=== PATIENT | male | born 1975 | race Caucasian/White ===

== ENCOUNTER 2017-01-02 19:06 | Inpatient (IN) | payer OTHER ==
[~2017-01-02] VITALS: Ht 165.1 cm; Wt 106.6 kg
[~2017-01-02 19:06] MED LIST: ALBUTEROL0.09 MG/A1 INH; ALDACTAZIDE 251 EACH PO; AUGMENTIN 875 M1 TAB PO; COMBIVENT RESPIM4 GM INH; FUROSEMIDE20 M1 PO; HYDROCHLOROTHIA25 M1 PO; LASIX40 M1 PO; LISINOPRIL5 M1 PO; NORCO 5-325 TA1 EACH PO; PREDNISONE50 MG PO; PROAIR HFA8.5 GM INH; SYMBICORT 16010.2 GM INH; TORSEMIDE20 M1 PO
--- NOTE | 2017-01-02 19:46 | NUR ---
PER PT 6 MONTHS OF PERIPHERAL EDEMA CALLED BY PMD TODAY BECAUSE WHITE COUNT IS HIGH BILAT LEGS WEEPY AND PAINFUL.
--- NOTE | 2017-01-02 20:07 | NUR ---
BLOOD DRAWN AND SENT TO LAB. GREEN,SST,BLUE,LAV.
[2017-01-02 20:13] LABS: ABSOLUTE BASOPHIL COUNT 0 /CUMM (0.0-0.2); ABSOLUTE EOSINOPHIL COUNT 0.3 /CUMM (0.0-0.7); ABSOLUTE GRANULOCYTE CT 7.4 /CUMM (1.4-6.5); ABSOLUTE MONOCYTE COUNT 1.7 /CUMM (0.10-0.60); BASOPHIL % 0.3 % (0.0-2.0); EOSINOPHIL % 2.4 % (0-5); GRANULOCYTE % 64.5 % (42.2-75.2); HEMATOCRIT 39.3 % (42-52); MEAN CORPUSCULAR HGB 27.7 PG (27.0-31.0); MEAN CORPUSCULAR HGB CONC 33.6 G/DL (33.0-37.0); MEAN CORPUSCULAR VOLUME 82.4 FL (80.0-94.0); MEAN PLATELET VOLUME 6.9 FL (7.4-10.4); PLATELET COUNT 408 /CUMM (130-400); RBC DISTRIBUTION WIDTH 13.7 % (11.5-14.5); RED BLOOD CELL CT 4.77 /CUMM (4.70-6.10); WHITE BLOOD CELL COUNT 11.4 /CUMM (4.8-10.8)
--- NOTE | 2017-01-02 20:44 | ED UPPER/LOWER EXTREMITY COMPL ---
History of Present Illness General Chief Complaint: General Adult Stated Complaint: PT WAS SIB DR FOR SWELLING OF LEGS Source: patient, family Exam Limitations: no limitations Vital Signs & Intake/Output Vital Signs & Intake/Output Vital Signs Date Time Temp Pulse Resp B/P B/P Pulse O2 O2 Flow FiO2 Mean Ox Delivery Rate 01/03 0000 98.0 106 16 124/66 97 Room Air 01/02 1947 98.7 100 28 116/75 96 ED Intake and Output 01/03 0000 01/02 1200 Intake Total 50 Output Total Balance 50 Intake, IV 50 Patient 262 lb Weight Allergies Coded Allergies: mold (Mild, NASAL CONGESTION 08/01/16) Reconcile Medications Albuterol Sulfate (Proair Hfa) 90 MCG HFA.AER.AD 2 PUF INH Q4-6 PRN PRN BREATHING (Reported) Aldactazide (Aldactazide 25-25 Tablet) 25 MG-25 MG TABLET 1 TAB PO DAILY IDIOPATHIC EDEMA Budesonide/Formoterol Fumarate (Symbicort 160-4.5 Mcg Inhaler) 160 MCG-4.5 MCG/ ACTUATION HFA.AER.AD 2 PUF INH BID BREATHING (Reported) Ipratropium/Albuterol Sulfate (Combivent Respimat Inhal [place]) 20 MCG-100 MCG/ ACTUATION MIST.INHAL 1-2 PUFF INH Q4 HRS NEEDED PRN BREATHING (Reported) Lisinopril 5 MG TABLET 1 TAB PO DAILY BP (Reported) Triage Note: PER PT 6 MONTHS OF PERIPHERAL EDEMA CALLED BY PMD TODAY BECAUSE WHITE COUNT IS HIGH BILAT LEGS WEEPY AND PAINFUL. Triage Nurses Notes Reviewed? yes Onset: Gradual Duration: week(s): (2) Timing: recent history Severity: moderate, severe Pain/Injury Location: Bilateral: Leg. No Modifying Factors: none Associated Symptoms: swelling HPI: This is a 41-year-old male with history of asthma who quit smoking 8 months ago who presents to the ER with chief complaint of a gradual worsening edema over the past 7 months. He states he was being controlled with Lasix and a sodium free diet. However the last 2 weeks the edema has gotten much worse, both legs are red, swollen and painful. He states he was sent for outpatient blood work by Danelle Barker DO's office today. They called him this evening with an elevated white blood cell count and told him to come to the hospital for treatment for cellulitis. Patient denies any chest pain. He does have shortness of breath when lying flat. He states he had an echocardiogram and evaluation by cardiology and that nothing is wrong with his heart. Past History Travel History Traveled to [place] past 21 day No Medical History Any Pertinent Medical History? see below for history Neurological: NONE EENT: NONE Cardiovascular: NONE Respiratory: asthma Gastrointestinal: NONE Hepatic: NONE Renal: NONE Musculoskeletal: NONE Psychiatric: NONE Endocrine: NONE Blood Disorders: NONE Cancer(s): NONE DETECTIVE/Reproductive: NONE History of MRSA: No History of VRE: No History of CDIFF: No Surgical History Surgical History: hernia repair-inguinal Psychosocial History Who do you live with Family Services at Home None What is your primary language Surinamese Tobacco Use: Never used Family History Hx Contributory? No Review of Systems Review of Systems Constitutional: Denies: chills, fever. EENTM: Reports: no symptoms. Respiratory: Reports: short of breath. Denies: cough, sputum production. Cardiovascular: Reports: peripheral edema. Denies: chest pain, palpitations, syncope. Gastrointestinal/Abdominal: Denies: abdominal pain. Genitourinary: Reports: no symptoms. Musculoskeletal: Reports: no symptoms. Skin: Reports: see HPI, erythema. Neurological/Psychological: Reports: no symptoms. Hematologic/Endocrine: Denies: bruising, bleeding, polyuria, polydipsia. Immunological: Denies: splenectomy. All Other Systems: Reviewed and Negative Physical Exam Physical Exam General Appearance: well developed/nourished, alert, awake, mild distress, obese Head: atraumatic Eyes: Bilateral: PERRL, EOMI. Ears, Nose, Throat: normal pharynx, normal ENT inspection, hearing grossly normal Neck: normal inspection, supple Cardiovascular/Respiratory: regular rate/rhythm Peripheral Pulses: 2+ radial (R), 2+ radial (L), 2+ dorsalis pedis (R), 2+ dorsalis pedis (L) Gastrointestinal: SOFT, OBESE TENSE LOWER ABDOMEN Back: normal inspection Leg Left: swelling, tenderness, ERYTHEMA Leg Right: swelling, tenderness, ERYTHEMA Hip Left: normal range of motion, normal inspection Hip Right: normal range of motion, normal inspection, mass, nodules, swelling, tenderness, abrasions/lacerations, assymetry, bone tenderness, deformity, ecchymosis, evidence of injury, joint effusion, pain, soft tissue tenderness, limited range of motion Knee Left: normal range of motion, normal inspection Knee Right: normal range of motion, normal inspection Foot Left: erythema, soft tissue tenderness, swelling Neurologic/Tendon: normal sensation, normal motor functions, normal tendon functions Skin: intact, normal color, warm/dry Lymphatic: no anterior cervical pascual Diagram Legs Front/Back 1) TENDER, SWOLLEN, ERYTHEMA 2) TENDER, SWELLING, ERYTHEMA Progress Differential Diagnosis: cellulitis, CHF, DVT, DEPENDENT EDEMA Plan of Care: Orders Procedure Date/time Status Heart Healthy Diet 01/03 B Active Pathway - chart 01/03 0038 Active Patient Data 01/03 2356 Active Patient Data 01/02 2245 Active Admit to inpatient 01/02 2139 Active Vital Signs 01/02 2139 Active Code Status 01/02 2139 Active Intake & Output 01/02 2133 Active Add-on Test (ER Only) 01/02 2111 Active BLOOD CULTURE 01/02 2111 Active EKG 01/02 2111 Active B-TYPE NATRIURETIC PEP (BNP) 01/02 1955 Complete TROPONIN LEVEL 01/03 1948 Complete COMPREHENSIVE METABOLIC PANEL 01/03 1948 Complete CBC WITHOUT DIFFERENTIAL 01/03 1948 Complete Current Medications Sig/Carey Start time Last Medication Dose Stop Time Status Admin Potassium Chloride 20 MEQ DAILY 01/03 1000 AC (K-Dur) Furosemide 40 MG 7:30 AM, & 4:30 PM 01/03 0730 AC (Lasix) Acetaminophen 650 MG Q6P PRN 01/03 0045 AC (Tylenol) Acetaminophen 1,000 MG Q6P PRN 01/03 0045 AC (Ofirmev) Oxycodone/ 1 TAB Q6P PRN 01/03 0045 AC Acetaminophen (Percocet) Budesonide/ 2 PUF BID 01/02 2357 AC 01/03 Formoterol Fumarate 0002 (Symbicort) Albuterol Sulfate 2 PUF Q4-6 PRN PRN 01/02 2345 AC (Ventolin) Laboratory Tests 01/02/171954: Anion Gap 12, Estimated GFR 56 L, BUN/Creatinine Ratio 10.7, Glucose 95, Calcium 9.2, Total Bilirubin 0.5, AST 32, ALT 37, Alkaline Phosphatase 100, Troponin I < 0.01, Cyx-V-Hoboglicwpl Pept 37.7, Total Protein 7.1, Albumin 3.8, Globulin 3.3, Albumin/Globulin Ratio 1.2, CBC w Diff NO MAN DIFF REQ, RBC 4.77, MCV 82.4, MCH 27.7, RDW 13.7, MPV 6.9 L, Gran % 64.5, Lymphocytes % 17.5 L, Monocytes % 15.3 H, Eosinophils % 2.4, Basophils % 0.3, Absolute Granulocytes 7.4 H, Absolute Lymphocytes 2.0, Absolute Monocytes 1.7 H, Absolute Eosinophils 0.3, Absolute Basophils 0, PUBS MCHC 33.6 Microbiology 01/02 2135 BLOOD: Blood Culture - RECD 01/03 2120 BLOOD: Blood Culture - RECD Diagnostic Imaging: Viewed by Me: Radiology Read. Discussed w/RAD: Radiology Read. Initial ED EKG: SINUS TACHYCARDIA, PROLONGED QT Departure Departure Disposition: STILL A PATIENT Condition: Stable Clinical Impression Primary Impression: Dependent edema Secondary Impressions: Cellulitis Referrals: DANELLE BARKER DO (PCP/Family) Departure Forms: Customer Survey General Discharge Information Admission Note Sp[facility]: [facility] Documentation of Exam: Documentation of any treatments & extenuating circumstances including Concerns Regarding Discharge (functional status, medication knowledge or non-compliance, living conditions, etc.) that warrant an admission rather than observation: [IV ABX, IV DIURESIS, F/U CULTURES, MONITOR I/O, MONITOR ELECTROLYTES]
--- NOTE | 2017-01-02 20:44 | NUR ---
PT TO ROOM 10 VIA W/C. AT BEDSIDE FOR PT EVAL
--- NOTE | 2017-01-02 21:27 | NUR ---
IV EST #20 IN RAC, CULTURES X2 OBTAINED
--- NOTE | 2017-01-02 21:33 | NUR ---
PT MEDICATED WITH 1G CEFAZOLIN AND 40MG LASIX
--- NOTE | 2017-01-02 21:35 | NUR ---
EKG IN PROGRESS BY CALLI KNOWLES
--- NOTE | 2017-01-02 21:41 | RADIOLOGY REPORT ---
EXAMINATION: XR PORTABLE CHEST CLINICAL INFORMATION: Shortness of breath. Worsening dependent edema. COMPARISON: Chest x-ray 08/03/2016 TECHNIQUE: Portable frontal view of the chest was obtained. 9:11 PM FINDINGS: No significant abnormality is noted involving the heart, lungs, mediastinum, bony thorax or soft tissues. IMPRESSION: No acute abnormality.
--- NOTE | 2017-01-02 23:22 | NUR ---
ASSUMED CARE OF PT PER JAIDA OWENS. PT RESTING IN RM WITH FAMILY AT BEDSIDE, WILL CONTINUE TO MONITOR.
--- NOTE | 2017-01-03 00:21 | NUR ---
PT MEDICATED WITH 40MG IV LASIX, CONFIRMED WITH RESIDENT REID, AND 40MEQ PO K-DUR PER EMAR. PHARMACY CALLED FOR SYMBICORT.
--- NOTE | 2017-01-03 00:48 | History & Physical ---
MIRIAM RAY 01/03/17 0047: General Information and HPI MD Statement: I have seen and personally examined LIS MCKENZIE and documented this H&P. The patient is a 41 year old M who presented with a patient stated chief complaint of worsening bilateral lower extremity edema. Source of Information: patient, old records Exam Limitations: no limitations History of Present Illness: This is a 40-year-old male with past medical history significant for morbid obesity, asthma on albuterol, Symbicort, ipratropium, obstructive sleep apnea not using CPAP, significant tobacco use quitted 8 months ago, positive Lyme titer in March, tonsillectomy, laparoscopic repair of left inguinal hernia, bilateral lower extremities edema, hypertension not on antihypertensives presented to the [facility] emergency department with the chief complaint of worsening bilateral lower extremity swelling for 3 weeks. Patient cald his PCP Dr. Chase DO for worsening lower extremity swelling and he was advised to get blood work done. Went to her primary care doctor who prescribed prednisone. He was advised by his primary care doctor to go to the emergency room for elevated WBC count, worsening swelling concerning for cellulitis. Patient reports bilateral lower extremity swelling which has been worsening for the past 3 weeks. He noticed weight gain almost 30 pounds in 3 weeks. Denied any dietary changes. He is on salt restricted diet. He denies missing of Lasix doses. Reports difficulty breathing, dyspnea on exertion, orthopnea. Denies any paroxysmal nocturnal dyspnea. Denies any chest pain, racing of heart. Also reported bilateral lower extremity redness, pain associated with swelling. Denies any trauma to the legs. Weeping Wound on left lower extremity with clear discharge. Of note patient has history of asthma. However denies any fever, chills, wheezing, cough. Compliant with asthma medications. Denies any chest pain, racing of heart, nausea, vomiting, abdominal pain, change in bladder or bowel habits. He denies smoking, alcohol abuse, illicit drug intake. Denies any sick contacts and recent travel history. He feels he is pretty good with mobilization. He was admitted at [facility] in July 2016 for anasarca. Patient has no history of cardiac disease and echocardiogram in April of 2016 showed normal EF >65% and normal diastolic dysfunction. 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 Due to histroy of SHAE and reported intolerance to CPAP, pulmonology consult was placed during last admission with Dr. Geovanna Schuler. She suggested after discharge that patient needs follow up for PFTs and CPAP desensitization. However patient didn't follow-up therapeutic recreation assistant after discharge. He has appointment with bariatric surgeon on coming Saturday day 01/04/2017 regarding obesity management. Allergies/Medications Allergies: Coded Allergies: mold (Mild, NASAL CONGESTION 08/01/16) Home Med list Albuterol Sulfate (Proair Hfa) 90 MCG HFA.AER.AD 2 PUF INH Q4-6 PRN PRN BREATHING (Reported) Aldactazide (Aldactazide 25-25 Tablet) 25 MG-25 MG TABLET 1 TAB PO DAILY IDIOPATHIC EDEMA Budesonide/Formoterol Fumarate (Symbicort 160-4.5 Mcg Inhaler) 160 MCG-4.5 MCG/ ACTUATION HFA.AER.AD 2 PUF INH BID BREATHING (Reported) Ipratropium/Albuterol Sulfate (Combivent Respimat Inhal Reasnor) 20 MCG-100 MCG/ ACTUATION MIST.INHAL 1-2 PUFF INH Q4 HRS NEEDED PRN BREATHING (Reported) Lisinopril 5 MG TABLET 1 TAB PO DAILY BP (Reported) Compliance With Home Meds: GOOD Past History Travel History Traveled to [place] past 21 day No Medical History Neurological: NONE EENT: NONE Cardiovascular: NONE Respiratory: asthma Gastrointestinal: NONE Hepatic: NONE Renal: NONE Musculoskeletal: NONE Psychiatric: NONE Endocrine: NONE Blood Disorders: NONE Cancer(s): NONE 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 EENTM: Denies: see HPI. Cardiovascular: Reports: edema, orthopena, peripheral edema. Denies: chest pain, palpitations, syncope. Respiratory: Reports: orthopnea, short of breath, wheezing. Denies: cough, hemoptysis, sputum production, stridor. GI: Reports: distention. Denies: abdominal pain, constipation, diarrhea, melena, nausea, vomiting. Genitourinary: Denies: discharge, dysuria, frequency, nocturia, urgency. Musculoskeletal: Denies: back pain, joint pain. Skin: Reports: erythema. Denies: see HPI. Neurological/Psychological: Denies: anxiety, ataxia, depressed, dementia, headache, numbness, tingling, tremors. Exam & Diagnostic Data Last 24 Hrs of Vital Signs/I&O Vital Signs Date Time Temp Pulse Resp B/P B/P Pulse O2 O2 Flow FiO2 Mean Ox Delivery Rate 01/03 0000 98.0 106 16 124/66 97 Room Air 01/02 1947 98.7 100 28 116/75 96 Intake & Output 01/03 0800 01/03 0000 01/02 1600 Intake Total 50 Output Total 1200 Balance -1200 50 Intake, IV 50 Output, Urine 1200 Patient 118.841 kg Weight Physical Exam General Appearance Alert, Oriented X3, Cooperative, No Acute Distress Skin No Rashes, No Breakdown HEENT Atraumatic, PERRLA, EOMI, Mucous Membr. moist/pink Neck Supple, No JVD Lymphatic Axillary nl, Cervical nl Cardiovascular Regular Rate, Normal S1, Normal S2, No Murmurs Lungs Clear to Auscultation, Normal Air Movement Abdomen Normal Bowel Sounds, Soft, No Tenderness Neurological Strength at 5/5 X4 Ext, Cranial Nerves 3-12 NL Extremities No Clubbing, No Cyanosis, +3 pitting edema Vascular Normal Pulses, Pulses Symmetrical Last 24 Hrs of Labs/Marquez: Laboratory Tests 01/02/171954: Anion Gap 12, Estimated GFR 56 L, BUN/Creatinine Ratio 10.7, Glucose 95, Calcium 9.2, Total Bilirubin 0.5, AST 32, ALT 37, Alkaline Phosphatase 100, Troponin I < 0.01, Sfr-Y-Fqhzuhxeyjh Pept 37.7, Total Protein 7.1, Albumin 3.8, Globulin 3.3, Albumin/Globulin Ratio 1.2, CBC w Diff NO MAN DIFF REQ, RBC 4.77, MCV 82.4, MCH 27.7, RDW 13.7, MPV 6.9 L, Gran % 64.5, Lymphocytes % 17.5 L, Monocytes % 15.3 H, Eosinophils % 2.4, Basophils % 0.3, Absolute Granulocytes 7.4 H, Absolute Lymphocytes 2.0, Absolute Monocytes 1.7 H, Absolute Eosinophils 0.3, Absolute Basophils 0, PUBS MCHC 33.6 Microbiology 01/02 2135 BLOOD: Blood Culture - RECD 01/03 2120 BLOOD: Blood Culture - RECD Assessment/Plan Assessment: This is a 40-year-old male with past medical history significant for morbid obesity, asthma on albuterol, Symbicort, ipratropium, obstructive sleep apnea not using CPAP, significant tobacco use quitted 8 months ago, positive Lyme titer in March, tonsillectomy, laparoscopic repair of left inguinal hernia, bilateral lower extremities edema, hypertension not on antihypertensives presented to the [facility] emergency department with the chief complaint of worsening bilateral lower extremity swelling for 3 weeks. Vitals on admission-afebrile, heart rate 100, respiratory rate 28, blood pressure 116/75, saturating at 96% on room air. Pertinent labs on admission-leukocytosis 11.4, hemoglobin 13.2, creatinine 1.4. Chest x-ray was clear. EKG showed sinus tachycardia, rate 103, QTC 492, no acute ST-T wave changes. He received 1 dose of 40 mg IV Lasix and cefazolin in emergency room. Problem list 1. leg edema 2. Asthma 3. SHAE 4. Lung nodules 5. Leukocytosis 6. Acute kidney injury leg edema Patient presented with worsening bilateral lower extremity edema for 3 weeks. Of note patient was diagnosed with dependent edema 6 months ago and was on Lasix 20 mg twice a day since then, also on sodium restricted diet. He is usually compliant With his Lasix. However he reported increase in weight gain 30 pounds for 3 weeks. Chest x-ray shows no evidence of pulmonary edema. * The patient reported bilateral lower extremities redness, pain associated with the swelling. Less likely cellulitis. Will rule out deep vein thrombosis. * Etiology for dependent edema remains unclear at this point. No evidence of heart failure, pulmonary hypertension, liver failure, nephrotic syndrome, hypothyroidism. Most possibly from venous insufficiency. * April 2016 echocardiogram showed normal ejection fraction greater than 65% with normal diastolic function. * Admitted to general med floor for further management. * Monitor vitals closely * Maintain oxygen saturation above 90% * Received IV Lasix 40 mg * We will keep him on Lasix 40 mg oral twice a day * Oral potassium pills * Strict ins and outs * Daily weights * Sodium restricted diet * Cardiology consult- dr bauer * Follow up cardiology recommendations * Follow-up ultrasound Doppler lower extremity 2. SHAE histroy of SHAE and reported intolerance to CPAP, pulmonology consult was placed during last admission with Dr. Geovanna Schuler. She suggested after discharge that patient needs follow up for PFTs and CPAP desensitization. However patient didn't follow-up therapeutic recreation assistant after discharge 3. Asthma * Continue home medications, symbicort, albuterol, atrovent * No evidence of asthma exacerbation * Provide supplemental O2 as needed to keep O2 saturtion >92%, * currently on RA * Outpatient testing for PFT, CPAP desensitization after discharge 4. Leukocytosis * WBC count elevated to 11.4 on admission * No bandemia * No fever * Urine was clear, chest x-ray was clear * No source of infection was found * Most likely from steroids as he was on steroids for 1 week prior to coming to the hospital * Will recheck WBC count in the morning. * No antibiotics for now. 5. Acute kidney injury * Creatinine 1.4 on admission * Most likely from Lasix * We'll continue to monitor creatinine 6. History of lung nodules (08/01/2016) Lung nodules with right costophrenic angle pleural thickening: Scattered pulmonary nodules noted on chest imaging, most of which were related to the fissures or pleural reflections. CT also showed increasing prominence of the nodular pleural thickening at the right cardiophrenic angle. * Needs outpatient follow-up with primary care doctor and therapeutic recreation assistant. Patient is full code DVT prophylaxis-subcutaneous heparin Heart healthy diet As Ranked By This Provider Problem List: 1. Asthma 2. Dependent edema 3. SHAE (obstructive sleep apnea) 4. Pulmonary nodules Core Measures/Miscellaneous Acute Coronary Syndrome ACS Diagnosis: No Cerebrovascular Accident CVA/TIA Diagnosis: No Congestive Heart Failure CHF Diagnosis: No Venous Thromboembolism VTE Risk Factors: Age > 40, Obesity No [facility] VTE prophylaxis d/t: No contraindications No VTE Pharm Prophylaxis d/t: No contraindications VTE Diagnosis: No VTE Type: NONE VTE Confirmed by (Test): NONE Severe Sepsis Severe Sepsis Present: No Septic Shock Septic Shock Present: No Miscellaneous Documentation Attending Case Discussed With: RIA KEARNEY MDVandana Primary Care Physician: ANGELA BARKER DO 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 Level of Patient Care: General Medicine HERNÁN KEARNEY MD 01/03/17 0520: Attending Review Statement Attending Statement Attending Statement: examined this patient, discuss w/resident/PA/PERFORMANCE SOLUTIONS SPECIALIST, agreed w/resident/PA/PERFORMANCE SOLUTIONS SPECIALIST Attending Assessment/Plan: 41 yo morbidly obese M with h/o asthma, SHAE with CPAP intolerance, lung nodules, ex-smoker quit 8 months ago, was admitted to [facility] (Jul 2016) for anasarca/ edema and found to have no clear etiology, discharged on diuretics ( spironolactone/HCTZ); subsequently readmitted to [facility], [facility] (Aug 2016) for similar symptoms and they did nothing different, he reports. He has been on lasix 20 mg BID and over past 3 weeks, he has noticed increasing LE edema extending upto his abdomen, weight gain of about 30-40 lbs and dyspnea/ orthopnea. 2 weeks ago, PCP placed him on prednisone for ?LE edema/erythema. PCP sent him in for blood work today which showed leukocytosis. She then asked him to come to ER for concerns of cellulitis. Please note, patient did not follow up with Dr. Bauer or Dr. Schuler as was advised upon discharge. He does not use his CPAP machine as he feels it bloats his abdomen and causes discomfort. He is unable to do high doses of lasix as it causes severe myalgias/ cramps. VSS. Chest b/l reduced air entry 2/2 body habitus, Heart S1S2 regular, Abd soft, distended, diffuse tenderness on deep palpation. Extremities: bilateral 3+ pitting edema extending upto lower abdomen, diffuse erythema, mild warmth. Peripheral pulses are dopplerable. Labs: WBC 11.4, Plt 408, creat 1.4 (baseline 1.0), trop neg. CXR: neg. EKG: Sinus tachycardia. Echo (2016): EF 65%. He received IV lasix 80 mg and diuresed about 1.2 Liter. 1. Idiopathic edema worse in the setting of recent steroid use, with no evidence of CHF. Previous work up was negative for nephrotic syndrome or cirrhosis. GM admit, elevate LE, IV lasix 40 BID, monitor electrolytes. No need for repeat Echo. Cardio consult (Dr. Bauer). Hold off prednisone. Please speak with PCP in AM and find out why patient was placed on prednisone. Consider compression stockings. I do not think he has bilateral cellulitis. Erythematous changes are secondary to dependent edema. Will obtain LE dopplers to rule out DVT. Monitor off antibiotics. 2. Orthopnea/ dyspnea on exertion likely multifactorial sleep apnea, profound anasarca and possible underlying obesity hypoventilation syndrome. He is not in asthma exacerbation. Continue TRC nebs and symbicort. I discussed use of CPAP machine and patient is very reluctant to use it. He needs outpatient follow up with Pulm for PFT, CPAP desensitization, and PET scan. 3. Hypertension. He has been taken off lisinopril. BP stable. 4. Elevated creatinine 2/2 diuretic use. Leukocytosis is likely steroid induced/ reactive. DVT ppx Hep SC. Full code. Patient is scheduled to see a Bariatric surgeon on Thursday 01/04 @ 2.15 pm for evaluation for surgery. MICHEAL REID 01/03/17 0533: Resident Review Statement Resident Statement: examined this patient, discussed with psychology intern, agreed with psychology intern Other Findings: Mr. Mckenzie is a 41 year old gentleman with significant past medical history of asthma [non-O2 dependent], recently diagnosed SHAE [noncompliant w CPAP], and recent progressive LE edema, presents to the hospital emergency department with complaints of progressive lower extremity edema associated with dyspnea and orthopnea for the last 3 weeks. He states he's been compliant with his Lasix and diet. He follows up with Dr. OCHOA an outpatient setting, as well as Dr. Bauer, who determined his lower extremity swelling was not cardiac in origin. He is quite frustrated as currently the etiology of his lower extremity edema is unknown. In addition to his swelling, he has also developed significant erythema bilaterally to the lower abdomen. Additionally he has significant pain in his lower extremities bilaterally. He states that he recently completed a course of steroids, which he feels was for lower extremity swelling however he is not certain. Vitals on admission were temperature 98.7, pulse rate 100, respiratory rate 28, blood pressure 116/75, saturating 96% on room air. physical exam was positive for an age-appropriate appearing male on comfortably in bed in no acute distress. HEENT exam benign. No jugular venous distention. Heart exam S1-S2 positive without murmur rubs or gallops. Lungs clear to auscultation bilaterally without any rales or rhonchi. Abdomen distended, nontender, bowel sounds appreciated. Well-demarcated area of erythema from his toes to his inferior umbilicus. Lower extremity exam significant for significant edema however it is trace pitting, with significant bilateral symmetrical erythema that is blanching. No warmth noted. However, both legs are severely tender to palpation. Labs significant for white blood cell count 11.4, H&H 13.2/39.3, platelets 408. Basic electrolyte panel significant for BUNs/creatinine 15/1.4. Remainder of the lab work is unremarkable, including BNP 37.7 and troponin less than 0.01. Chest x-ray was negative for any acute pathology. Problem list/assessment plan Bilateral lower extremity edema * Admit to for IV diuresis. * Undetermined etiology, Additionally he doesn't have abdominal ascites or jugular venous distention and cardiac origin has been ruled out. * His tendereness and erythema may indicate vasculitis, we will add on ESR and C -reactive protein as if they are elevated this may point nebs towards vasculitis , however with vasculitis, his edema shouldn't really respond to IV diuresis. * Additionally, we will obtain bilateral lower extremity Dopplers to evaluate for DVT as he does have a family history of blood clots in his brother. * IV diuresis with Lasix 40 mg twice a day, we will also give 1 extra dose of IV Lasix. Additionally we will give potassium supplementation as last time he states he was diuresed, he developed significant cramping. * Please consult again with Dr. Bauer in the morning * We will also recheck his BUN/creatinine in the morning as he did have a slight bump in his creatinine 1.4. Dyspnea/orthopnea * Given his ENP and chest x-ray findings, this is mostly likely secondary to a long history of smoking and newly diagnosed obstructive sleep apnea. * We will continue inhalers and TRC/nebs, as well as CPAP [however patient refused CPAP multiple times.] * He did not get a chest to follow-up with pulmonology an outpatient setting for an evaluation as well as pulmonary function tests. Leukocytosis * Given his lack of fever, symptoms, and chest x-ray finding, his mildly elevated white blood cell count was most likely secondary to steroid-induced leukocytosis, and if a CBC was measured a few days ago, I'm sure the white blood cell count has improved today. Full code Heart healthy diet IV heparin for DVT ppx Mild pain path
--- NOTE | 2017-01-03 01:13 | NUR ---
PT AMBULATING AROUND THE ROOM AND USING URINAL NEEDED. THIS RN WILL CONTINUE TO MONITOR
--- NOTE | 2017-01-03 01:27 | NUR ---
THIS RN TURNED OFF LIGHTS FOR COMFORT FOR PT, PT SNORING, WILL CONTINUE TO MONITOR
--- NOTE | 2017-01-03 02:46 | NUR ---
PT AMBULATING AROUND THE ROOM ASKING TO PUT HIS PANTS ON. THIS RN STATED THAT IT IS PREFERED TO KEEP PANTS OFF AND THE GOWN ON FOR THE PURPOSE OF THE BILATERAL LOWER EDEMA
--- NOTE | 2017-01-03 03:47 | NUR ---
PT SLEEPING, BILATERAL CHEST RISE AND FALL NOTED, PT CONTINUES TO SNORE. WILL CONTINUE TO MONITOR
--- NOTE | 2017-01-03 04:44 | Admission Certification ---
Admission Certification Certification Statement - As attending physician, I certify that at the time of - admission, based on clinical presentation, severity of - symptoms, need for further diagnostic testing and - therapeutic interventions, and risk of adverse outcomes - without in-hospital treatment, in my clinical assessment, - this patient requires an acute hospital stay for a minimum - of two nights or longer. I have also considered psychsocial - factors such as support system, advanced age, financial - issues, cognitive issues, and failed out-patient treatments, - past re-admission history, safety of patient, and lack of - compliance as applicable. Specific rationale supporting this admission is: Bilateral lower extremity edema, generalized ansarca of unclear etiology.
--- NOTE | 2017-01-03 04:53 | NUR ---
PT SLEEPING WITH RR, WILL CONTINUE TO MONITOR
--- NOTE | 2017-01-03 05:55 | NUR ---
PT INFORMED THAT BREAKFAST WILL BE HERE SOON
--- NOTE | 2017-01-03 06:16 | NUR ---
PT REFUSED 0600 HEPARIN BOLUS SC, PT STATES " I WALK AROUND A LOT I DONT NEED THAT", RESIDENT FRANKLIN CALLED AND INFORMED.
--- NOTE | 2017-01-03 09:45 | ULTRASOUND REPORT ---
EXAMINATION: US TRIPLEX OF LOWER EXTREMITIES, BILATERAL CLINICAL INFORMATION: Bilateral lower extremity pain, swelling and erythema. COMPARISON: Ultrasound bilateral lower extremities dated 07/19/2016. TECHNIQUE: Color-flow triplex imaging with spectral analysis and compression Doppler were performed on the lower extremities. FINDINGS: Respiratory variation, normal compression and augmented flow are noted throughout the lower extremities. The visualized common femoral vein, proximal greater saphenous vein, superficial femoral vein, profunda femoral vein, popliteal vein and mid calf peroneal and posterior tibial venous segments show no evidence of deep venous thrombosis. There is no Garcia's cyst. In the right inguinal region, a 3.5 x 1.6 x 2.7 cm reniform lymph node is seen. In the left inguinal region, a 3.6 x 1.5 x 2.6 cm reniform lymph node is seen. IMPRESSION: 1. No ultrasound evidence of deep venous thrombosis involving the bilateral lower extremities. 2. Nonspecific pathologically enlarged bilateral internal lymph nodes could be secondary to infectious, inflammatory or neoplastic etiologies. These should be managed on a clinical basis. At a minimum, consider short-term follow-up ultrasound imaging to ensure stability/regression.
--- NOTE | 2017-01-03 14:21 | NUR ---
BED ASSIGNMENT [id number]
--- NOTE | 2017-01-03 14:45 | NUR ---
NURSING NOTE REPORT GIVEN TO JAIDA OCASIO.
--- NOTE | 2017-01-03 15:36 | PN- Att Addend ---
Attending Addendum Attending Brief Note Patient seen and examined. In addition the advertising internship also spoke to Dr. Stone's PA and both the advertising internship and myself spoke to Dr. Bauer. This is a 41-year-old gentleman with morbid obesity and history of asthma who has anasarca and edema of unclear etiology. He had an extensive stay in July 2016 when he was worked up from a cardiac, renal and hepatic standpoint and no obvious etiology was found for his edema. He's been maintained previously on spirinolactone and hydrochlorothiazide and most recently on Lasix on the outside. He came in here because of the worry of cellulitis and a high white count. Clinically he doesn' t appear to have a cellulitis and we are watching him off antibiotics. He got IV Lasix to decrease the amount of edema and we are going to switch it to by mouth Lasix now. We confirm this with Dr. Bauer as his renal function is worsening. We clarified that the prednisone use was for an asthma exacerbation and because his edema and legs looks so much better on the prednisone the PCP was considering the possibility of an autoimmune blistering disease giving him the edema and swelling and gave him another course of prednisone. At this point will safely watch him off the prednisone, switch his Lasix to by mouth and follow his renal function and white count closely. If it stabilized believe he can be discharged in a.m. with ongoing outpatient follow-up to workup the cause of this edema.
[2017-01-03 15:44] VITALS: BP 120/80
--- NOTE | 2017-01-03 15:50 | Patient Discharge Instructions ---
Discharge Instructions General Discharge Information Special Instructions: Follow up with Dr. Bauer and Dr. Schuler after discharge. Contact Call Dermatology to schedule an appointment for further evaluation of your lower extremity swelling. please follow up with vascular surgery as outpatient Acute Coronary Syndrome Inclusion Criteria At DC or during hospital stay patient has or had the following: ACS DIAGNOSIS No Discharge Core Measures Meds if any: Prescribed or Continued at Discharge Meds if any: NOT Prescribed or Continued at Discharge Congestive Heart Failure Inclusion Criteria At DC or during hospital stay patient has or had the following: CHF DIAGNOSIS No Discharge Core Measures Meds if any: Prescribed or Continued at Discharge Meds if any: NOT Prescribed or Continued at Discharge Cerebrovascular accident Inclusion Criteria At DC or during hospital stay patient has or had the following: CVA/TIA Diagnosis No Discharge Core Measures Meds if any: Prescribed or Continued at Discharge Meds if any: NOT Prescribed or Continued at Discharge Venous thromboembolism Inclusion Criteria VTE Diagnosis No VTE Type NONE VTE Confirmed by (Test) NONE Discharge Core Measures - Per Current guidelines, there needs to be overlap - treatment for the first 5 days of Warfarin therapy. - If discharged on Warfarin prior to 5 days of - overlap therapy, the patient will need to be - assessed for post discharge needs including - *Post discharge parental anticoagulation - *Warfarin and/or parental anticoagulation education - *Follow up date to check INR post discharge At least 5 days overlap therapy as Inpatient No Meds if any: Prescribed or Continued at Discharge Note: Overlap Therapy is Warfarin and Anticoagulant Meds if any: NOT Prescribed or Continued at Discharge
--- NOTE | 2017-01-03 16:00 | NUR ---
pt arrived to floor at aprx 1500. A&O X 3. C/O PAIN 3/10 TO BRIANNE KNEES, REFUSES INTERVENTION. BLE AND LOWER ABD +2 EDEMA AND REDDNES NOTED. +PULSES WITH DOPPLER, X'S MARKED BRIANNE PEDAL FOR EASE OF FINDING. BED LOW, LOCKED, CALL MONTES WITHIN REACH. MONITOR, MAINTAIN SAFETY PRECATIONS.
--- NOTE | 2017-01-03 17:49 | Cons- Cardiology ---
General Information and HPI Consulting Request Date of Consult: 01/03/17 Requested By: KALEE ELDRIDGE,GHAZAL Lacy History of Present Illness: The patient is a 41 year old male with history of asthma, hypertension and tobacco abuse. He also has obstructive sleep apnea. This patient has had persistent issues with bilateral lower extremity edema. He was diuresed and this did improve his fluid overload but the fluid retention is beginning to return. He otherwise denies any chest pain, pressure or tightness although in the past he did have some exertional chest tightness. He also has shortness of breath with exertion but it is unchanged. Lightheadedness and palpitations are not part of his clinical syndrome. Zac was initially seen at [facility] due to concerns regarding a rapid gain in his weight with diffuse swelling consistent with anasarca that had developed over the preceding three months. His weight gain was about 70 pounds. He was diureses and underwent a workup that included an echocardiogram and a chest and abdominal CT. The echocardiogram showed a normal size left ventricle with mild left ventricular hypertrophy. His EF was normal at 65% with a normal filling pattern. No valvular abnormalities were identified. His renal function was normal. His lipid profile did disclose hypertryglyceridemia with a level of 310. His HDL was low at 32 and his LDL was 73. Thyroid function tests were normal and his BNP was very low. LFT's were also normal. His chest CT did show scattered pulmonary nodules. An abdominal CT was negative for any ascites. This patient has noted joint pain and did have an erythematous and blanching rash on his back. His Lyme titer is positive for IgG. He did see Dr. Parisi who found his cortisol level to be low at 0.7mcg/dL. His stress test was negative for ischemia. Allergies/Medications Allergies: Coded Allergies: mold (Mild, NASAL CONGESTION 08/01/16) Home Med List: Albuterol Sulfate (Proair Hfa) 90 MCG HFA.AER.AD 2 PUF INH Q4-6 PRN PRN BREATHING (Reported) Aldactazide (Aldactazide 25-25 Tablet) 25 MG-25 MG TABLET 1 TAB PO DAILY IDIOPATHIC EDEMA Budesonide/Formoterol Fumarate (Symbicort 160-4.5 Mcg Inhaler) 160 MCG-4.5 MCG/ ACTUATION HFA.AER.AD 2 PUF INH BID BREATHING (Reported) Ipratropium/Albuterol Sulfate (Combivent Respimat Inhal [place]) 20 MCG-100 MCG/ ACTUATION MIST.INHAL 1-2 PUFF INH Q4 HRS NEEDED PRN BREATHING (Reported) Lisinopril 5 MG TABLET 1 TAB PO DAILY BP (Reported) Past History Travel History Traveled to [place] past 21 day No Medical History Blood Transfusion Hx: No Neurological: NONE EENT: NONE Cardiovascular: hypertension Respiratory: asthma, obstructive sleep apnea Gastrointestinal: NONE Hepatic: NONE Renal: NONE Musculoskeletal: NONE Psychiatric: NONE Endocrine: NONE Blood Disorders: NONE Cancer(s): NONE 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 Home Services at Home: None Smoking Status: Former Smoker ETOH Use: moderate alcohol Illicit Drug Use: denies illicit drug use Exam & Diagnostic Data Vital Signs and I&O Vital Signs Date Time Temp Pulse Resp B/P B/P Pulse O2 O2 Flow FiO2 Mean Ox Delivery Rate 01/03 1544 98.0 107 20 120/80 96 01/03 1010 97.0 111 19 130/69 96 Room Air 01/03 0629 96.4 96 18 137/60 97 Room Air 01/03 0000 98.0 106 16 124/66 97 Room Air 01/02 1947 98.7 100 28 116/75 96 Intake & Output 01/03 1600 01/03 0800 01/03 0000 01/02 1600 01/02 0800 01/02 0000 Intake Total 400 50 Output Total 2700 Balance 400 -2700 50 Intake, IV 50 Intake, Oral 400 Output, Urine 2700 Patient 235 lb 262 lb Weight Physical Exam: General: WD overweight male in NAD; alert and oriented x 3 HEENT: NC/AT, PERRL, EOMI Neck: no JVD, no carotid bruit Heart: RRR w/o murmur Lungs: clear bilaterally ABdomen: soft, obese, NT, +ve bowel sounds Extremities: 2+ leg edema bilaterally Assessment/Plan Assessment/Plan * Zac has severe obstructive sleep apnea and has not been using his CPAP due to abdominal discomfort. I suspect that his stomach was filling with air from the CPAP. My recommendation was to retry the CPAP but to sleep with his back elevated and to put a pillow under his shoulders instead of his head to encourage flow into the lungs rather than his esophagus. This patient likely has right heart strain related to his sleep apnea although I am not convinced that there is any left heart failure at this time. Some minor right heart failure related to the sleep apnea is possible combined with dependent edema from his centripetal obesity. Some consideration may be given to the enlarged lymph nodes that could possibly be causing an obstructive problem. Continue Lasix at 40mg daily. I would not use more since his creatinine is rising. Okay to discharge from a cardiac standpoint with follow up in the office in one to two weeks. Consult Acknowledgment - Thank you for your consult request.
[2017-01-03 22:37] VITALS: BP 122/70
--- NOTE | 2017-01-04 07:03 | PN- Housestaff ---
TREV ELDRIDGE,MARGUERITE 01/04/17 0702: Subjective Follow-up For: Bilateral lower extremity swelling Subjective: Patient seen and examined. He is seen sitting upright in bed resting comfortably. He is anxious and agitated, but in no acute distress. He reports that his legs are incredibly painful and is incredibly frustrated because "nobody can figure out whats wrong". He otherwise does not endorse any new subjective complaints. Additionally he denies any headache, fever, chills, chest pain, palpitations, shortness of breath, cough, nausea, vomiting, diarrhea. No overnight events reported. Review of Systems Constitutional: Reports: see HPI. Objective Last 24 Hrs of Vital Signs/I&O Vital Signs Date Time Temp Pulse Resp B/P B/P Pulse O2 O2 Flow FiO2 Mean Ox Delivery Rate 01/04 1421 97.8 99 20 124/90 97 Room Air 01/04 1302 96 128/82 01/04 0756 97.6 95 20 128/84 95 Room Air 01/04 0000 94 Room Air 01/03 2237 98.1 98 20 122/70 94 Room Air 01/03 1544 98.0 107 20 120/80 96 Intake & Output 01/04 1600 01/04 0800 01/04 0000 Intake Total 300 750 Output Total 1800 300 Balance -1500 450 Intake, Oral 300 750 Output, Urine 1800 300 Physical Exam General Appearance: Alert, Oriented X3, Cooperative, No Acute Distress Other Physical Findings: General-well developed, well nourished obese middle aged man in no acute distress HEENT-NCAT, PERRL, EOMI, anicteric sclera, moist mucous membranes CVS- S1, S2 w/o m/g/r Resp- CTA bilaterally GI-Soft, obese, nontender, mildly distended, bowel sounds intact Neuro- Awake and alert, CN II - XII grossly intact Ext- bilateral lower extremities apear mildly erythematous and tense within 4+ pitting edema without obvious weeping or drainage, both legs are severely tender to palpation, especially the thighs, diminished pulses, no cyanosis/clubbing Current Medications: Current Medications Sig/Carey Start time Last Medication Dose Route Stop Time Status Admin Acetaminophen 650 MG Q6P PRN 01/03 0045 AC 01/03 PO 0902 Acetaminophen 1,000 MG Q6P PRN 01/03 0045 AC IV Albuterol Sulfate 2 PUF Q4-6 PRN PRN 01/02 2345 AC INH Budesonide/ 2 PUF BID 01/02 2357 AC 01/04 Formoterol Fumarate INH 1442 Furosemide 40 MG DAILY 01/04 1000 CAN PO Heparin Sodium 5,000 UNIT Q8 01/03 0600 AC (Porcine) SC Oxycodone/ 1 TAB Q6P PRN 01/03 0045 AC Acetaminophen PO Potassium Chloride 20 MEQ DAILY 01/03 1000 AC 01/04 PO 1442 Last 24 Hrs of Lab/Marquez Results Last 24 Hrs of Labs/Mics: Laboratory Tests 01/04/17 1000: Urine Color YEL, Urine Clarity CLEAR, Urine pH 8.0, Ur Specific [place] 1.010, Urine Protein NEG, Urine Ketones NEG, Urine Nitrite NEG, Urine Bilirubin NEG, Urine Urobilinogen 0.2, Ur Leukocyte Esterase NEG, Ur Microscopic EXAM NOT REQUIRED, Urine Hemoglobin NEG, Urine Glucose NEG 01/04/17 0727: Anion Gap 10, Estimated GFR > 60, BUN/Creatinine Ratio 14.4, CBC w Diff NO MAN DIFF REQ, RBC 4.84, MCV 83.3, MCH 28.4, RDW 13.7, MPV 7.2 L, Gran % 65.4, Lymphocytes % 16.3 L, Monocytes % 15.5 H, Eosinophils % 2.4, Basophils % 0.4, Absolute Granulocytes 6.2, Absolute Lymphocytes 1.6, Absolute Monocytes 1.5 H, Absolute Eosinophils 0.2, Absolute Basophils 0, PUBS MCHC 34.1 01/04/17 0600: Complement C3 Pending, Complement C4 Pending Assessment/Plan Assessment: 41 year old man with multiple medical problems significant for SHAE noncompliant with CPAP, morbid obesity, chronic bilateral lower extremity swelling, and hypertension seen for evaluation of persistently lower extremity swelling/pain. Patient was admitted to [facility] from 08/01/16 - 08/06/16 for which he underwent an extensive cardiovascular evaluation for which he was treated with intravenous lasix and discharge to home on an oral diuretic therapy with instruction to follow up with his water team leader Dr. Bauer. He is admitted to the general medicine floor for further evaluation of these symptoms. Hospital Day 2 Patient is incredibly frustrated because "nobody can figure out whats wrong". To further assess patients etiology of his lower extremity swelling a CT abdomen/ pelvis with contrast is to be obtained. US of the bilateral lower extremities was negative, but demonstrated lymphadenopathy of unclear etiology. Carotid doppler and vasulcar surgery consults are placed to further assess any unlying vascular disease. C3/C4 are sent to assess for hereditary angioedema. Chronic Bilateral Lower Swelling/Pain/SHAE noncompliant with CPAP Patient reports large weight gain and severe swelling of his bilateral lower extremities since May of 2016. Patient was admitted to several hospitals and underwent an extensive evaluation. Patients symptoms are most likely due to his obstructive sleep apnea and noncompliance with his CPAP and sequelae secondary to this. Bilateral ultrasound of lower extremities is negative for DVT , but identified lymphadopathy. -General Medicine -Nocturnal CPAP -Hold lasix today, restart as needed -Cardiology consult -F/U CT Abdomen/Pelvis with contrast -F/U Carotid Doppler -F/U Vascular Doppler -F/U C3/C4 levels History of Asthma -Albuterol/Ventolin Pain Plan-Acetaminophen/Percocet Diet-Heart healthy diet DVT PPx- subcutaneous heparin Code Status- FULL CODE Problem List: 1. Dependent edema Pain Ratin Pain Location: Bilateral lower extremities Pain Goal: Pain 7 or less Pain Plan: See assessment Tomorrow's Labs & Rationales: BEP-GHAZAL Gan MD 01/04/17 1329: Attending MD Review Statement Attending Statement Attending MD Statement: examined this patient, discuss w/resident/PA/COMMERCIAL LOAN ASSISTANT, agreed w/resident/PA/COMMERCIAL LOAN ASSISTANT, discussed with family, reviewed EMR data (avail), discussed with nursing, discussed with case mgmt, reviewed images Attending Assessment/Plan: Patient and patient's mother had multiple concerns. The bottom line is he is a 41-year-old male who has significant bilateral symmetric lower extremity and abdominal wall edema of unclear etiology. In July he had a fairly extensive workup with 2 echocardiograms, urinalysis and they looked at hepatic, cardiac and renal causes of the edema and couldn't find any. The patient's mother is extremely concerned that a similar thing happen to her and finally a vascular cause was found and she is also worried about DVT granted her other son had a provoked DVT. Yesterday the ultrasound done for DVT was negative for a DVT however did show bilateral lymphadenopathy. We spoke to the patient, the patient's mother and also discussed with Dr. Sendy at length. At this point we will get a CT of the abdomen and contrast with IV contrast to look at the vasculature, lymphadenopathy and any obvious cause of bilateral lower extremity edema. Dr. Bauer feels that we don't need to repeat the echo at this time given 2 negative echoes a few months ago. The mother is very concerned about vasculature in the neck and to appease her, will get a carotid ultrasound. In addition because the patient also gives symptomatology suggestive of syncope which Dr. Bauer feels is all secondary to over-diureses and orthostasis. We' ve also ordered orthostatic vital signs and will follow closely.
[2017-01-04 07:56] VITALS: BP 128/84
[2017-01-04 08:09] LABS: ABSOLUTE BASOPHIL COUNT 0 /CUMM (0.0-0.2); ABSOLUTE EOSINOPHIL COUNT 0.2 /CUMM (0.0-0.7); ABSOLUTE GRANULOCYTE CT 6.2 /CUMM (1.4-6.5); ABSOLUTE LYMPH COUNT 1.6 /CUMM (1.2-3.4); ABSOLUTE MONOCYTE COUNT 1.5 /CUMM (0.10-0.60); BASOPHIL % 0.4 % (0.0-2.0); EOSINOPHIL % 2.4 % (0-5); GRANULOCYTE % 65.4 % (42.2-75.2); HEMATOCRIT 40.3 % (42-52); MEAN CORPUSCULAR HGB 28.4 PG (27.0-31.0); MEAN CORPUSCULAR HGB CONC 34.1 G/DL (33.0-37.0); MEAN CORPUSCULAR VOLUME 83.3 FL (80.0-94.0); MEAN PLATELET VOLUME 7.2 FL (7.4-10.4); PLATELET COUNT 396 /CUMM (130-400); RBC DISTRIBUTION WIDTH 13.7 % (11.5-14.5); RED BLOOD CELL CT 4.84 /CUMM (4.70-6.10); WHITE BLOOD CELL COUNT 9.5 /CUMM (4.8-10.8)
[2017-01-04 13:02] VITALS: BP 128/82
[2017-01-04 14:21] VITALS: BP 124/90
--- NOTE | 2017-01-04 16:19 | CT SCAN REPORT ---
EXAMINATION: CT ABDOMEN AND PELVIS WITH CONTRAST CLINICAL INFORMATION: 41-year-old male with lymphadenopathy, extensive lower extremity edema. COMPARISON: CT of the abdomen and pelvis done on 09/26/2011. TECHNIQUE: Multidetector volumetric imaging was performed of the abdomen and pelvis before and after the IV administration of 94 mL of Optiray 320 intravenous contrast. Sagittal and coronal reformatted images were obtained on the technologist's workstation. DLP: 1147.53 mGy-cm FINDINGS: LUNG BASES: The visualized lung bases are unremarkable. LIVER, GALLBLADDER, AND BILIARY TREE: The liver is normal in size, shape, and attenuation. No focal hepatic lesion or biliary ductal dilatation is present. The gallbladder is unremarkable with no evidence of radiopaque gallstones, gallbladder wall thickening, or obvious pericholecystic inflammatory changes. PANCREAS: Unremarkable. SPLEEN: Unremarkable. ADRENAL GLANDS: Unremarkable. KIDNEYS AND URETERS: 3 cm maximum dimension cortical cyst is present at the superior anterior cortex of the right kidney, stable since 09/26/2011. Otherwise both kidneys are unremarkable. BLADDER: Suboptimally distended, grossly appears unremarkable. GASTROINTESTINAL TRACT: The small and large bowel are unremarkable. The appendix is unremarkable. ABDOMINAL WALL: No significant hernia is appreciated. LYMPH NODES: No pathologically enlarged retroperitoneal, and/or mesenteric lymphadenopathy present. Bilateral shotty external iliac lymph nodes are noted, appear stable since prior study. Lymphadenopathy present. Bilateral shotty groin lymph nodes are noted in the inguinal region. The dominant short axis measurement is 2.4 cm on the left and 1.4 cm on the right. Clinical correlation is recommended. The number and size of the lymph nodes appear to have increased since 2012. VASCULAR: The aorta, cava appear patent. Specifically, there is no evidence of any compressive mass identified overlying the vessels within the pelvis as well as retroperitoneum. PELVIC VISCERA: There is no pelvic mass present. There is no free fluid and/or free air present. OSSEOUS STRUCTURES: No suspicious lytic or sclerotic abnormality is present. IMPRESSION: 1. Evidence of bilateral groin, inguinal lymph nodes are present, appear increased in size as well as number since prior study dated 09/26/2011. Persistent stable bilateral shotty external iliac lymph nodes are noted. No pathologically enlarged retroperitoneal, mesenteric lymphadenopathy present. Specifically, no CT evidence of any compressive pelvic and/or retroperitoneal mass identified overlying the aorta and inferior vena cava. 2. 3 cm right renal cortical cyst, unchanged since 09/26/2011.
--- NOTE | 2017-01-04 17:17 | ULTRASOUND REPORT ---
EXAMINATION: DUPLEX BILATERAL CAROTID ULTRASOUND CLINICAL INFORMATION: Syncope. COMPARISON: None. TECHNIQUE: Duplex bilateral carotid US was performed using real-time ultrasound and Doppler techniques (integrating B-mode 2D vascular images, Doppler spectral analysis and color flow Doppler imaging). These techniques were utilized to interrogate the extracranial carotid and vertebral arteries bilaterally. The degree of stenosis is based off criteria similar to NASCET. FINDINGS: No plaque is seen at the carotid bifurcations or within the internal carotid arteries. All velocities are within normal limits. ADDITIONAL FINDINGS: The vertebral arteries show antegrade flow. The external carotid arteries appear normal. IMPRESSION: No evidence of a hemodynamically significant stenosis involving the internal carotid arteries.
--- NOTE | 2017-01-04 21:06 | PN- Cardiology ---
Subjective Subjective: * No shortness of breath at rest but patient continues to have concerns regarding persistent leg swelling. * sinus rhythm * enlarged inguinal lymph nodes noted on ultrasound * creatnine normalized to 0.9 Objective Vital Signs and I&Os Vital Signs Date Time Temp Pulse Resp B/P B/P Pulse O2 O2 Flow FiO2 Mean Ox Delivery Rate 01/04 1421 97.8 99 20 124/90 97 Room Air 01/04 1302 96 128/82 01/04 0756 97.6 95 20 128/84 95 Room Air 01/04 0000 94 Room Air 01/03 2237 98.1 98 20 122/70 94 Room Air Intake & Output 01/04 1600 01/04 0800 01/04 0000 01/03 1600 01/03 0800 01/03 0000 Intake Total 1050 300 750 400 50 Output Total 1600 2796 184 0408 Balance -550 -1500 450 400 -2700 50 Intake, IV 50 Intake, Oral 1050 300 750 400 Number 1 Bowel Movements Output, Urine 1600 6668 906 3009 Patient 235 lb 262 lb Weight Physical Exam: General: WD overweight male in NAD; alert and oriented x 3 HEENT: NC/AT, PERRL, EOMI Neck: no JVD, no carotid bruit Heart: RRR w/o murmur Lungs: clear bilaterally ABdomen: soft, obese, NT, +ve bowel sounds Extremities: 2+ leg edema bilaterally Assessment/Plan Assessment/Plan * This patient likely has reactive lymph nodes due to prior episodes of lower extremity cellulitis. Nevertheless, it is reasonable to obtain a CT scan to better assess for obstruction from these enlarged lymph nodes. The patient's leg edema is likely multifactorial and due to centripetal obesity and perhaps some increased RV pressures in the setting of obstructive sleep apnea. Continue to diurese with Lasix and continue to use CPAP. We will consider restrictive heart disease in the differential as well. An eventual right heart catheterization may be needed. Continue telemetry? No
[2017-01-04 22:35] VITALS: BP 118/84
[2017-01-05 06:53] VITALS: BP 112/80
--- NOTE | 2017-01-05 07:58 | PN- Housestaff ---
STEPHANI FLEMING 01/05/17 0758: Subjective Follow-up For: Bilateral lower extremity swelling syncope Subjective: seen and examined patient. mother at bedside. He is frustrated about the fact that he does not have a clear cut diagnosis. Denies any headache, fever, chills, chest pain, palpitations, shortness of breath, cough, nausea, vomiting, diarrhea. Review of Systems Constitutional: Denies: chills, diaphoresis, fever, malaise, weakness, unexplained weight loss. Cardiovascular: Denies: chest pain, edema, orthopena, palpitations, peripheral edema, syncope. Respiratory: Denies: cough, hemoptysis, orthopnea, short of breath, sputum production, stridor, wheezing. Objective Last 24 Hrs of Vital Signs/I&O Vital Signs Date Time Temp Pulse Resp B/P B/P Pulse O2 O2 Flow FiO2 Mean Ox Delivery Rate 01/05 0829 98 01/05 0653 97.9 118 20 112/80 97 Room Air 01/04 2308 100 01/04 2235 98.3 108 20 118/84 97 Room Air 01/04 1421 97.8 99 20 124/90 97 Room Air 01/04 1302 96 128/82 Intake & Output 01/05 1600 01/05 0800 01/05 0000 Intake Total 0 600 Output Total 650 1000 Balance -650 -400 Intake, IV 0 Intake, Oral 0 600 Number 0 0 Bowel Movements Output, Urine 650 1000 Physical Exam General Appearance: Alert, Oriented X3, Cooperative, No Acute Distress, morbidly obese Cardiovascular: Regular Rate, Normal S1, Normal S2 Lungs: Clear to Auscultation, Normal Air Movement Abdomen: distended Extremities: b/l edema Current Medications: Current Medications Sig/Carey Start time Last Medication Dose Route Stop Time Status Admin Acetaminophen 650 MG .STK-MED ONE 01/04 2240 DC PO 01/04 224 Acetaminophen 650 MG .STK-MED ONE 01/04 1636 DC PO 01/04 1637 Acetaminophen 650 MG Q6P PRN 01/03 0045 AC 01/04 PO 2240 Acetaminophen 1,000 MG Q6P PRN 01/03 0045 AC IV Albuterol Sulfate 2 PUF Q4-6 PRN PRN 01/02 2345 AC INH Budesonide/ 2 PUF BID 01/02 2357 AC 04/28 Formoterol Fumarate INH 2127 Furosemide 40 MG DAILY 01/05 1000 AC PO Heparin Sodium 5,000 UNIT Q8 01/03 0600 AC (Porcine) SC Oxycodone/ 1 TAB Q6P PRN 01/03 0045 AC Acetaminophen PO Potassium Chloride 20 MEQ DAILY 01/03 1000 AC 01/04 PO 1442 Last 24 Hrs of Lab/Marquez Results Last 24 Hrs of Labs/Mics: Laboratory Tests 01/05/17 0643: Anion Gap 10, Estimated GFR > 60, BUN/Creatinine Ratio 14.4 01/04/17 1000: Urine Color YEL, Urine Clarity CLEAR, Urine pH 8.0, Ur Specific [place] 1.010, Urine Protein NEG, Urine Ketones NEG, Urine Nitrite NEG, Urine Bilirubin NEG, Urine Urobilinogen 0.2, Ur Leukocyte Esterase NEG, Ur Microscopic EXAM NOT REQUIRED, Urine Hemoglobin NEG, Urine Glucose NEG Assessment/Plan Assessment: 41 year old man with multiple medical problems significant for SHAE noncompliant with CPAP, morbid obesity, chronic bilateral lower extremity swelling, and hypertension seen for evaluation of persistently lower extremity swelling/pain. 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 Bauer. He is admitted to the general medicine floor for further evaluation of these symptoms. Hospital Day 2 He continues to be frustrated regarding etiology of his lower extremity swelling. Attending had an extensive conversation with patient and his mother this morning. They were explained the results of the CT abdomen and pelvis which showed persistent stable bilateral shotty external iliac lymph nodes with no evidence of compression to account for his lower extremity swelling. Carotid ultrasound was unremarkable. Their main concern was his 2 episodes of syncope. Patient expressed that he would like to be discharged later today. Will obtain CT head without contrast and if it is unremarkable then he will be discharged later today. C3/C4 pending Chronic Bilateral Lower Swelling/Pain/SHAE noncompliant with CPAP -Continue General Medicine -Nocturnal CPAP -Lasix will be restarted and he will be discharged on that along with potassium supplements -Cardiology on board appreciated recommendations -vascular surgery consult was placed -F/U C3/C4 levels History of Asthma -Albuterol/Ventolin Pain Plan-Acetaminophen/Percocet Diet-Heart healthy diet DVT PPx- subcutaneous heparin Code Status- FULL CODE Problem List: 1. Dependent edema Pain Ratin Pain Location: na Pain Goal: Pain 4 or less Pain Plan: current regimen Tomorrow's Labs & Rationales: none required GHAZAL GRANDA MD 01/05/17 0929: Attending MD Review Statement Attending Statement Attending MD Statement: examined this patient, discuss w/resident/PA/BUTTON CUTTING MACHINE OPERATOR, agreed w/resident/PA/BUTTON CUTTING MACHINE OPERATOR, discussed with family, reviewed EMR data (avail), discussed with nursing, discussed with case mgmt, reviewed images Attending Assessment/Plan: I discussed at length and spoke to the patient and patient's mother. Patient is extremely frustrated about the lack of diagnosis for his edema that has been going on for 6 months. I explained at length the workup for cardiac issues, renal issues and hepatic issues. I also reassured him that the CT scan done yesterday with IV contrast doesn't show any obvious lymphatic or venous obstruction that would account for the edema. Because of the history of syncope , the carotid ultrasound was ordered which was also negative and he is very mildly orthostatic with a systolic falling 10 points when he stood up. He remains frustrated and worried. He is requesting a CT head because of the syncope and his mother is worried about "pituitary" issues. I reassured her at length that there is nothing in the blood tests to suggest any obvious pituitary issues. I also explained that I can get the CT head and if that's negative he should be discharged with ongoing outpatient follow-up. I explained the need to see subspecialists as an outpatient to workup the edema and to follow-up on the complement levels that were done here. Given that his pressure is on the low side and he was mildly orthostatic, I'm not going to restart his SYLVIA inhibitor. He will leave on a low-dose Lasix 40 mg by mouth daily with potassium replacement and outpatient follow-up with Danelle Stone DO. He will leave if his CT head is negative.
[2017-01-05] MEDS ORDERED: LASIX40 M1 PO (09:04)
[2017-01-05] MEDS ORDERED: K-TAB ER20 MEQ PO (09:06)
--- NOTE | 2017-01-05 10:00 | NUR ---
LATE ENTRY: PT ON SCHEDULED POTASSIUM SUPPLEMENT WITH DAILY DOSE DUE AT THIS TIME. DR. FLEMING NOTIFIED OF PT'S K LEVEL TODAY- 4.9. PT'S K LEVEL NOTED TO BE TRENDING UPWARDS. PER MD, WE MAY HOLD TODAY'S DOSE. PT TO GO WITH RX FOR POTASSIUM NOW PLACED ON LASIX WHICH POSSIBLY CAN DEPLETE PT'S K LEVEL. PT UPDATED. LIKELY DISCHARGE TODAY. WILL CONT TO MONITOR.
--- NOTE | 2017-01-05 10:00 | CT SCAN REPORT ---
EXAMINATION: CT HEAD WITHOUT CONTRAST CLINICAL INFORMATION: Syncope. COMPARISON: None. TECHNIQUE: Contiguous axial imaging was performed from the skull base to vertex without intravenous administration of contrast. DLP: 600.71 mGy-cm FINDINGS: There is no evidence of acute intracranial hemorrhage or territorial infarction. No abnormal mass effect or midline shift is seen. [place] to white matter differentiation is well preserved. No extra-axial fluid collections are identified. The ventricles are normal in size. There is no abnormal attenuation within the brain parenchyma. The osseous structures and soft tissues are normal. There is mild bilateral ethmoid and maxillary sinusitis. The mastoid air cells are well aerated. IMPRESSION: 1. No acute intracranial finding. 2. There is mild paranasal sinusitis.
--- NOTE | 2017-01-05 12:03 | Cons- Vascular Surgery ---
General Information and HPI Consulting Request Date of Consult: 01/05/17 Requested By: GHAZAL GRANDA MD History of Present Illness: 41-year-old man with history of obesity, sleep apnea, hypertension and bilateral lower extremity edema and anasarca presented to the hospital with worsening swelling of bilateral legs and weeping. The patient does have compression stockings but has not been wearing them recently. Ultrasound of the lower extremity showed no DVT. However, there were large inguinal lymph nodes. Vascular surgery was consulted regarding bilateral leg swelling. Allergies/Medications Allergies: Coded Allergies: mold (Mild, NASAL CONGESTION 08/01/16) Home Med List: Albuterol Sulfate (Proair Hfa) 90 MCG HFA.AER.AD 2 PUF INH Q4-6 PRN PRN BREATHING (Reported) Aldactazide (Aldactazide 25-25 Tablet) 25 MG-25 MG TABLET 1 TAB PO DAILY IDIOPATHIC EDEMA Budesonide/Formoterol Fumarate (Symbicort 160-4.5 Mcg Inhaler) 160 MCG-4.5 MCG/ ACTUATION HFA.AER.AD 2 PUF INH BID BREATHING (Reported) Furosemide (Lasix) 40 MG TABLET 1 TAB PO DAILY LEG SWELLING Ipratropium/Albuterol Sulfate (Combivent Respimat Inhal [place]) 20 MCG-100 MCG/ ACTUATION MIST.INHAL 1-2 PUFF INH Q4 HRS NEEDED PRN BREATHING (Reported) Lisinopril 5 MG TABLET 1 TAB PO DAILY BP (Reported) Potassium Chloride (K-Tab ER) 20 MEQ TABLET.ER 1 TAB PO DAILY SUPPLEMENT Past History Medical History Blood Transfusion Hx: No Neurological: NONE EENT: NONE Cardiovascular: hypertension Respiratory: asthma, obstructive sleep apnea Gastrointestinal: NONE Hepatic: NONE Renal: NONE Musculoskeletal: NONE Psychiatric: NONE Endocrine: NONE Blood Disorders: NONE Cancer(s): NONE LEAD COOK/Reproductive: NONE Surgical History Pertinent Surgical History: hernia repair-inguinal (left), tonsillectomy Psychosocial History Where Do You Live? Home Services at Home: None Smoking Status: Former Smoker ETOH Use: moderate alcohol Illicit Drug Use: denies illicit drug use Review of Systems Review of Systems: Patient denies headache, dizziness, cough, palpitation, diarrhea or constipation Exam & Diagnostic Data Vital Signs and I&O Vital Signs Date Time Temp Pulse Resp B/P B/P Pulse O2 O2 Flow FiO2 Mean Ox Delivery Rate 01/05 0829 98 01/05 0653 97.9 118 20 112/80 97 Room Air 01/04 2308 100 01/04 2235 98.3 108 20 118/84 97 Room Air 01/04 1421 97.8 99 20 124/90 97 Room Air 01/04 1302 96 128/82 Intake & Output 01/05 1600 01/05 0800 01/05 0000 01/04 1600 01/04 0800 01/04 0000 Intake Total 0 600 1050 300 750 Output Total 650 1000 1600 1800 300 Balance -650 -400 -550 -1500 450 Intake, IV 0 Intake, Oral 0 600 1050 300 750 Number 0 0 1 Bowel Movements Output, Urine 650 1000 1600 1800 300 Physical Exam: Patient is alert and oriented 3. Cardiovascular: Regular rate and rhythm Lungs: Clear to auscultation bilaterally Abdomen: Soft, obese, nontender nondistended Extremities: There is severe swelling of bilateral lower extremity. There is no active drainage at this time. There is no evidence of infection. There are no ulcers. Assessment/Plan Assessment/Plan 41-year-old man with multiple medical issues and anasarca of unknown etiology presents with worsening bilateral lower extremity swelling and weeping. The weeping has stopped. There are no active ulcers. Ultrasound has shown no evidence of DVT. I think is bilateral lower extremity edema may be due to venous insufficiency and/or lymphedema. Treatment of both will be compression and leg elevation. I will see him as an outpatient. Thank you for asking me to be involved in the care of this patient. Consult Acknowledgment - Thank you for your consult request. Attending MD Review Statement Attending Statement Attending MD Statement: examined this patient, discuss w/resident/PA/HUMAN SERVICE TECHNICIAN
--- NOTE | 2017-01-06 05:46 | Discharge Summary ---
Visit Information Visit Dates Admission Date: 01/02/17 Discharge Date: 01/05/17 Hospital Course Course Attending Physician: KALEE ELDRIDGE,GHAZAL Lacy Primary Care Physician: ANGELA BARKER DO Consulting Request: 1 Consulting Specialty: Cardiology Consulting Request: 2 Consulting Specialty: Thoracic/Vascular Surgery Hospital Course: 41 year old man with multiple medical problems significant for SHAE noncompliant with CPAP, morbid obesity, chronic bilateral lower extremity swelling, and hypertension seen for evaluation of persistently lower extremity swelling/pain. 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 Bauer. He is admitted to the general medicine floor for further evaluation of these symptoms. Chronic Bilateral Lower Swelling/Pain/SHAE noncompliant with CPAP Patient admitted to the general medicine floor for further evaluation of his chronic bilateral lower extremity swelling. He reports a recent hospitalization at [facility] where they "didn't do anything" for him. He is see by Dr. Bauer and Dr. Schuler for evaluation of his obstructive sleep apnea. Patient is noncompliant with his nocturnal CPAP device stating that is causes him moderate/severe abdominal discomfort the morning after. Clinically patients symptoms seem to represent sequelae secondary to poorly controlled SHAE with CPAP noncompliance. Ultrasound of the bilateral lower extremities ruled out any deep venous thrombosis, however did identify lymphadenopathy of unclear significance. Cardiology consult was placed with Dr. Bauer whom agreed with this assessement. CT Abdomen/Pelvis was obtained to evaluate for any occult pathology possibly predisposing him to these symptoms, with was ultimately negative. Carotid doppler was negative. C3/C4 leves are pending at time of discharge. Patient also notes multiple episodes of 'passing out' during urination, this is most likley due to over diuresis for which lasix were held. Orthostat blood pressure were mildly positive. CT head was obtained at insistence of patient and his mother to evaluate for any intracranial pathology inciting these episodes, which was ultimately negative. Patient was discharged to home on lasix and instruction to stop taking his SYLVIA inhibitor and instruction to follow up with his primary care provider after discharge. Allergies: Coded Allergies: mold (Mild, NASAL CONGESTION 08/01/16) Significant Procedures: SERVICE DATE: 01/02/17 EXAM TYPE: RAD - XRY-PORTABLE CHEST XRAY IMPRESSION: No acute abnormality. SERVICE DATE: 01/03/17- EXAM TYPE: US - US-EXT BILAT VENOUS DOPPLER IMPRESSION: 1. No ultrasound evidence of deep venous thrombosis involving the bilateral lower extremities. 2. Nonspecific pathologically enlarged bilateral internal lymph nodes could be secondary to infectious, inflammatory or neoplastic etiologies. These should be managed on a clinical basis. At a minimum, consider short-term follow-up ultrasound imaging to ensure stability/regression. SERVICE DATE: 01/04/17 EXAM TYPE: CAT - CT ABD & PELVIS W IV CONTRAST IMPRESSION: 1. Evidence of bilateral groin, inguinal lymph nodes are present, appear increased in size as well as number since prior study dated 09/26/2011. Persistent stable bilateral shotty external iliac lymph nodes are noted. No pathologically enlarged retroperitoneal, mesenteric lymphadenopathy present. Specifically, no CT evidence of any compressive pelvic and/or retroperitoneal mass identified overlying the aorta and inferior vena cava. 2. 3 cm right renal cortical cyst, unchanged since 09/26/2011. SERVICE DATE: 01/04/17 EXAM TYPE: US - [id number] DOPPLER IMPRESSION: No evidence of a hemodynamically significant stenosis involving the internal carotid arteries. SERVICE DATE: 01/05/17 EXAM TYPE: CAT - CT HEAD WO IV CONTRAST IMPRESSION: 1. No acute intracranial finding. 2. There is mild paranasal sinusitis. Disposition Summary Disposition Principal Diagnosis: Chronic lower extremity swelling/lymphedema/anasarca Additional Diagnosis: Obstructive Sleep Apnea Discharge Disposition: home or self care Discharge Instructions General Discharge Information Code Status: Full Code Patient's Diet: Regular Diet Patient's Activity: Return to full activity as tolerated Follow-Up Instructions/Appts: Follow up with Dr. Bauer and Dr. Schuler after discharge. Contact [facility] to schedule an appointment for further evaluation of your lower extremity swelling. please follow up with vascular surgery as outpatient Medications at Discharge Discharge Medications: Stop taking the following medications: Lisinopril (Lisinopril) 5 MG TABLET ORAL DAILY Qty = 30 Aldactazide (Aldactazide 25-25 Tablet) 25 MG-25 MG TABLET ORAL DAILY Qty = 30 Continue taking these medications: Ipratropium/Albuterol Sulfate (Combivent Respimat Inhal [place]) 20 MCG-100 MCG/ ACTUATION MIST.INHAL 1-2 PUFF Inhale through mouth EVERY 4 HOURS NEEDED as needed for BREATHING Qty = 4 Comments: NOT GIVEN Budesonide/Formoterol Fumarate (Symbicort 160-4.5 Mcg Inhaler) 160 MCG-4.5 MCG/ ACTUATION HFA.AER.AD 2 Puff Inhale through mouth TWICE DAILY Qty = 10 Comments: Last Taken: 01/05/17 Time: 11:20 AM Albuterol Sulfate (Proair Hfa) 90 MCG HFA.AER.AD 2 Puff Inhale through mouth EVERY 4-6 HOURS NEEDED as needed for BREATHING Qty = 9 Comments: NOT GIVEN Start taking the following new medications: Furosemide (Lasix) 40 MG TABLET 1 Tablet ORAL DAILY Qty = 30 No Refills Comments: Last Taken: 01/05/17 Time: 11:20 AM Potassium Chloride (K-Tab ER) 20 MEQ TABLET.ER 1 Tablet ORAL DAILY Qty = 30 No Refills Comments: Last Taken: 01/04/17 Time: 2:40 PM Copies To: ALEJANDRO ELDRIDGE,Trip SORIA; PAULINE ELDRIDGE,FUNMILAYO; NIGHAT ELDRIDGE PhD,LEONCIO Sinha
== END 2017-01-05 12:30 | DRG 469 ==
LOC: ERH 19:06 → ERHI 21:39 → 2NA 21:39 → CANRESERV 23:14 → ENRESERV 23:14 → ERHI 01-03 10:03 → ENRESERV 01-03 14:07 → 2NA 01-03 15:07
PROVIDERS: Emergency Medicine; Internal Medicine Hematology & Oncology; ADMIT Student in an Organized Health Care Education/Training Program
DX: N17.9 Acute kidney failure, unspecified (principal); E66.01 Morbid (severe) obesity due to excess calories; R60.1 Generalized edema; J45.909 Unspecified asthma, uncomplicated; G47.33 Obstructive sleep apnea (adult) (pediatric); Z87.891 Personal history of nicotine dependence; I10 Essential (primary) hypertension; Z68.39 Body mass index [BMI] 39.0-39.9, adult
CPT/HCPCS: 2NASP; 86160; ERO; 36415; 74177; 81003; 82436; 87040; 93005; 93010; 93970; 96374; 96375; J0131; J0690; J1644; J1940; J3490

== ENCOUNTER 2017-02-05 16:29 | Inpatient (IN) | payer OTHER ==
[~2017-02-05] VITALS: Ht 165.1 cm; Wt 127.0 kg
[~2017-02-05 16:29] MED LIST changes: +K-TAB ER20 MEQ PO
[2017-02-05 17:58] LABS: ABSOLUTE BASOPHIL COUNT 0 /CUMM (0.0-0.2); ABSOLUTE EOSINOPHIL COUNT 0.2 /CUMM (0.0-0.7); ABSOLUTE GRANULOCYTE CT 7.5 /CUMM (1.4-6.5); ABSOLUTE LYMPH COUNT 1.2 /CUMM (1.2-3.4); ABSOLUTE MONOCYTE COUNT 1.8 /CUMM (0.10-0.60); BASOPHIL % 0 % (0.0-2.0); EOSINOPHIL % 1.6 % (0-5); GRANULOCYTE % 69.9 % (42.2-75.2); HEMATOCRIT 38.6 % (42-52); MEAN CORPUSCULAR HGB 27.2 PG (27.0-31.0); MEAN CORPUSCULAR HGB CONC 33.3 G/DL (33.0-37.0); MEAN CORPUSCULAR VOLUME 81.7 FL (80.0-94.0); MEAN PLATELET VOLUME 6.8 FL (7.4-10.4); PLATELET COUNT 451 /CUMM (130-400); RBC DISTRIBUTION WIDTH 13.5 % (11.5-14.5); RED BLOOD CELL CT 4.73 /CUMM (4.70-6.10); WHITE BLOOD CELL COUNT 10.8 /CUMM (4.8-10.8)
--- NOTE | 2017-02-05 18:10 | RADIOLOGY REPORT ---
EXAMINATION: XR CHEST CLINICAL INFORMATION: Rule out pneumonia. Cough. COMPARISON: Chest x-ray from 01/02/2017. TECHNIQUE: 2 views of the chest were obtained. FINDINGS: There are increased interstitial lung markings which are visible on prior imaging. No airspace opacities or pleural effusions are seen. The cardiomediastinal silhouette is normal. No acute osseous abnormality is identified. IMPRESSION: Increased lung markings is nonspecific and may be chronic or could be due to mild underlying pulmonary venous congestion. Recommend clinical correlation.
--- NOTE | 2017-02-05 18:17 | ED INFLUENZA/URI COMPLAINT ---
History of Present Illness General Chief Complaint: Upper Respiratory Sx/Fever Stated Complaint: SIB DR. BARKER FOR R/O PNEUMONIA Source: patient, family, old records Exam Limitations: no limitations Vital Signs & Intake/Output Vital Signs & Intake/Output Vital Signs Date Time Temp Pulse Resp B/P B/P Pulse O2 O2 Flow FiO2 Mean Ox Delivery Rate 02/05 2213 97.8 112 20 120/80 96 Room Air 02/05 2106 99.4 122 22 120/78 96 Room Air 02/05 2102 Room Air 02/05 2059 96 02/05 2014 99.7 02/05 1830 98 02/05 1826 100.7 02/05 1710 99.6 119 20 127/77 97 Room Air Allergies Coded Allergies: mold (Mild, NASAL CONGESTION 08/01/16) Reconcile Medications Acetaminophen 500 MG TABLET 2 TAB PO PRN PAIN (Reported) Albuterol Sulfate (Proair Hfa) 90 MCG HFA.AER.AD 2 PUF INH Q4-6 PRN PRN BREATHING (Reported) Budesonide/Formoterol Fumarate (Symbicort 160-4.5 Mcg Inhaler) 160 MCG-4.5 MCG/ ACTUATION HFA.AER.AD 2 PUF INH BID BREATHING (Reported) Furosemide (Lasix) 40 MG TABLET 1 TAB PO DAILY LEG SWELLING Ipratropium/Albuterol Sulfate (Combivent Respimat Inhal Wilcox) 20 MCG-100 MCG/ ACTUATION MIST.INHAL 1-2 PUFF INH Q4 HRS NEEDED PRN BREATHING (Reported) Potassium Chloride (K-Tab ER) 20 MEQ TABLET.ER 1 TAB PO DAILY SUPPLEMENT Tramadol HCl 50 MG TABLET 1 TAB PO PRN PAIN (Reported) Triage Note: PT TO ED FOR FEVER, COUGH AND GENERAL MALAISE X 1 DAY. Triage Nurses Notes Reviewed? yes Onset: Abrupt Duration: day(s): (1), constant Timing: recent history Severity: moderate, severe Severity Numbers: 10 No Modifying Factors: none Associated Symptoms: cough, fever/chills, muscle aches HPI: 41-year-old male with history of hypertension sleep apnea presents to the ER for evaluation going generalized malaise fever or chills. Productive cough of brown sputum shortness of breath for the past 1 day. He saw his primary care physician prior to arrival who sent him here for evaluation. He was admitted last month due to fluid overload. He's been compliant with all his medications which include Lasix. He was using his breathing treatments earlier today without improvement shortness of breath is worse with exertion. He denies any chest pain palpitations on arrival patient is noted to be tachycardic however old records reviewed showed patient is a resting baseline tachycardia which his family corroborated he is seen by Dr. Meyers and has had Holter monitoring with no known cause identified for his tachycardia. Patient denies worsening leg swelling. Symptoms are not worse with laying flat however worse with exertion he does not smoke (TIM ANDERSEN) Past History Travel History Traveled to [place] past 21 day No Medical History Any Pertinent Medical History? 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 No (TIM ANDERSEN) Review of Systems Review of Systems Constitutional: Reports: see HPI, chills, fever, malaise. All Other Systems: Reviewed and Negative Comments Review of systems: See HPI, All other systems negative. Constitutional, chills fever, malaise no weight loss HEENT: no sore throat no congestion, no ear pain Cardiovascular: No chest pain , no palpitation , no orthopnea Skin: no rashes, no change in skin Respiratory: dyspnea cough sputum GI: No nausea no vomiting, no diarrhea : No dysuria No hematuria, no frequency, Muscle skeletal: No joint pain, no back pain, no neck pain, Neurologic: No numbness no headache Psych: No stress no depression,. Heme/endocrine: No bruising no bleeding Immunology: No lymphadenopathy (TIM ANDERSEN) Physical Exam Physical Exam General Appearance: well developed/nourished, alert, awake Ears, Nose, Throat: normal ENT inspection, moist mucous membrane, hearing grossly normal Respiratory: wheezing, respiratory distress Comments: Well-developed well-nourished person in no acute distress HEENT: Normal EENT exam; PERRL, EOMI, no nystagmus. HEAD is atraumatic. moist mucous membranes. Neck: Supple, no lymphadenopathy, normal range of motion Back: Nontender, no CVA tenderness. Full range of motion Cardiovascular: Regular rate and rhythms no murmurs rubs Respiratory: Chest nontender.There were no bony deformities, no asymmetry. No respiratory distress. Patient speaking in 2-3 word sentences wheezing bilaterally lung sounds are rhonchorous no rales Abdomen: Soft, nontender nondistended, no appreciable organomegaly. Normal bowel sounds. No rebound/guarding, No appreciable enlargement of the abdominal aorta, No ascites. Extremity: 4+ edema bilaterally lower extremities full range of motion of extremities, normal and equal pulses bilaterally, 5 out of 5 strength noted to bilateral upper and lower extremities Neuro: Alert oriented x3, motor sensory normal, . There were no obvious focal neurologic abnormalities. Skin: No appreciable rash on exposed skin, skin is warm and dry. Psych: Mood and affect is normal, memory and judgment is normal. Core Measures Severe Sepsis Present: No Septic Shock Present: No (PRAMOD BUSCH,TIM) Progress Differential Diagnosis: influenza, pneumonia, sinusitis, CHF, BRONCHITIS, PE, PTNHX, AMI, PERICARDITIS Plan of Care: Orders Procedure Date/time Status Heart Healthy Diet 02/06 B Active CBC WITHOUT DIFFERENTIAL 02/06 06 Active BASIC ELECTROLYTES PLUS BUN&CR 02/06 0600 Active Vital Signs 02/05 2202 Active Teach/Educate 02/05 2202 Active Pain Treatment and Response 02/05 2202 Active Nutritional Intake, Monitor 02/05 2202 Active Isolation 02/05 2202 Active Intake & Output 02/05 2202 Active Patient Care Conference 02/05 2202 Active Activity/Ambulation 02/05 2202 Active Code Status 02/05 2138 Active STREP PNEUMO URINARY ANTIGEN 02/05 2133 Active LEGIONELLA URINARY ANTIGEN 02/05 2133 Active LOWER RESPIRATORY CULTURE 02/05 2133 Active Pathway - chart 02/05 2033 Active Pathway - chart 02/05 2031 Active Patient Data 02/05 1923 Active Admit to inpatient 02/05 1918 Active Code Status 02/05 191 Complete BLOOD CULTURE 02/05 1848 Active Intake & Output 02/05 1835 Active Add-on Test (ER Only) 02/05 1821 Active EKG 02/05 1816 Active TROPONIN LEVEL 02/05 1743 Complete B-TYPE NATRIURETIC PEP (BNP) 02/05 174 Complete COMPREHENSIVE METABOLIC PANEL 02/05 171 Complete CBC WITHOUT DIFFERENTIAL 02/05 1714 Complete US-EXT BILAT VENOUS DOPPLER 02/05 UNK Active OXYGEN SETUP (GEN) 02/05 UNK Active CHEST PHYSICAL THERAPY (GEN) 02/05 UNK Active House Staff 02/05 UNK Active VTE Mechanical Prophylaxis 02/05 UNK Active Vital Signs 02/05 UNK Active Hemoccult 02/05 UNK Active Current Medications Sig/Carey Start time Last Medication Dose Stop Time Status Admin Furosemide 40 MG DAILY 02/06 1000 AC (Lasix) Budesonide/ 2 PUF BID 02/05 2200 AC Formoterol Fumarate (Symbicort) Heparin Sodium 5,000 UNIT Q8 02/05 220 AC (Porcine) Methylprednisolone 40 MG Q8 02/05 2200 AC 02/05 (Solumedrol) 2225 Tramadol HCl 50 MG Q8P PRN 02/05 2145 AC (Ultram) Azithromycin 500 MG DAILY 02/05 2138 AC (Zithromax) Sodium Chloride 250 ML (Normal Saline 0.9%) Acetaminophen 650 MG Q6P PRN 02/05 2045 AC (Tylenol) Acetaminophen 1,000 MG Q6P PRN 02/05 2045 AC (Ofirmev) Hydromorphone HCl 0.5 MG Q4P PRN 02/05 2045 AC (Dilaudid) Laboratory Tests 02/05/17 1743: Anion Gap 11, Estimated GFR > 60, BUN/Creatinine Ratio 9.1, Glucose 90, Calcium 9.0, Total Bilirubin 0.5, AST 25, ALT 44, Alkaline Phosphatase 107, Troponin I < 0.01, Xet-Z-Jjaahchwpvg Pept 69.4, Total Protein 7.6, Albumin 4.1, Globulin 3.5, Albumin/Globulin Ratio 1.2, CBC w Diff NO MAN DIFF REQ, RBC 4.73, MCV 81.7, MCH 27.2, RDW 13.5, MPV 6.8 L, Gran % 69.9, Lymphocytes % 11.6 L, Monocytes % 16.9 H, Eosinophils % 1.6, Basophils % 0 L, Absolute Granulocytes 7.5 H, Absolute Lymphocytes 1.2, Absolute Monocytes 1.8 H, Absolute Eosinophils 0.2, Absolute Basophils 0, PUBS MCHC 33.3 Microbiology 02/05 2133 URINE ROUT: Legionella Antigen - ORD 02/05 2133 URINE ROUT: Streptococcus pneumoniae Antigen (M - ORD 02/05 2133 LOWER RESP: Respiratory Culture - ORD 02/05 2133 LOWER RESP: Gram Stain - ORD 02/05 1910 BLOOD: Blood Culture - RECD 02/05 1850 BLOOD: Blood Culture - RECD Old records reviewed shows that the patient's heart rate normally is in the upper 90s to 1 teens during his previous admission one month ago. X-ray labs ordered from triage breathing treatment ordered I discussed the case with Dr. Garibay who evaluated the patient and agrees with the plan I discussed with him that I believe premature discharge in medically harmful and I believe the patient would benefit and warrant admission at this time for fluid overload which they're in agreement with. pt amb around the ER notably dyspneic, wheezing, repeat duoneb ordered- 94-96% Case discussed with Dr. BUTCHER WILL ADMIT pt med with azithro 500mg iv, solumedrol1 25mg iv, lasix 40mg iv (TIM ANDERSEN) Diagnostic Imaging: Viewed by Me: Radiology Read. Discussed w/RAD: Radiology Read. Radiology Impression: PATIENT: LIS MCKENZIE PRESENT AGE: 41 PATIENT ACCOUNT NO: [id number] : 74 LOCATION: [facility] ORDERING PHYSICIAN: DARWIN NICOLE DO SERVICE DATE: 02/05/17 EXAM TYPE: RAD - XRY-CHEST XRAY, PA AND LATERAL EXAMINATION: XR CHEST CLINICAL INFORMATION: Rule out pneumonia. Cough. COMPARISON: Chest x-ray from 01/02/2017. TECHNIQUE: 2 views of the chest were obtained. FINDINGS: There are increased interstitial lung markings which are visible on prior imaging. No airspace opacities or pleural effusions are seen. The cardiomediastinal silhouette is normal. No acute osseous abnormality is identified. IMPRESSION: Increased lung markings is nonspecific and may be chronic or could be due to mild underlying pulmonary venous congestion. Recommend clinical correlation. DICTATED BY: PAMELA MILLAN MD DATE/TIME DICTATED:02/05/171804 LIME KILN WORKER HELPER:PATRICIA DATE/TIME TRANSCRIBED:05/30/17 / 1805 CONFIDENTIAL, DO NOT COPY WITHOUT APPROPRIATE AUTHORIZATION. <Electronically signed in Other Vendor System> SIGNED BY: PAMELA MILLAN MD 02/05/17 181 Initial ED EKG: stach at 110, no acute st seg changes, normal axis (TIM ANDERSEN) Departure Departure Time of Disposition: 1915 Disposition: STILL A PATIENT Condition: Stable Clinical Impression Primary Impression: Bronchitis Referrals: ANGELA BARKER DO (PCP/Family) Departure Forms: Customer Survey General Discharge Information Prescriptions: Current Visit Scripts Potassium Chloride (K-Tab ER) 1 TAB PO DAILY #30 Admission Note Spoke With: KAJAL PABON MD Documentation of Exam: Documentation of any treatments & extenuating circumstances including Concerns Regarding Discharge (functional status, medication knowledge or non-compliance, living conditions, etc.) that warrant an admission rather than observation: Patient will require multiple breathing treatments IV steroids antibiotics IV diuresis cardiology consult premature discharge would BE medically harmful (TIM ANDERSEN) PA/REHABILITATION TECH Co-Sign Statement Statement: ED Attending supervision documentation- [] I saw and evaluated the patient. I have also reviewed all the pertinent lab results and diagnostic results. I agree with the findings and the plan of care as documented in the PA's/REHABILITATION TECH's documentation. [X] I have reviewed the ED Record and agree with the PA's/REHABILITATION TECH's documentation. [] Additions or exceptions (if any) to the PAs/REHABILITATION TECH's note and plan are summarized below: [] (JENNIFER ELDRIDGE,PAMELA Mehta)
[2017-02-05] MEDS ORDERED: TRAMADOL HCL50 M1 PO (18:56)
[2017-02-05] MEDS ORDERED: ACETAMINOPHEN500 M4 PO (18:57)
[2017-02-05] MEDS ORDERED: LISINOPRIL5 M1 (18:57)
--- NOTE | 2017-02-05 19:51 | History & Physical ---
ARAMIS EATON MD 02/05/171950: General Information and HPI MD Statement: I have seen and personally examined MCKENZIELIS T and documented this H&P. The patient is a 41 year old M who presented with a patient stated chief complaint of [fever, cough, malaise]. Source of Information: patient Exam Limitations: no limitations History of Present Illness: 41-year-old male, with past medical history of hypertension, obstructive sleep apnea, compliant with CPAP, asthma, obesity, chronic lymphedema, was sent in by PCP for fever, cough with brown sputum, malaise. Patient has been admitted for lower extremity swelling, which started about 7 months ago. His last admission was on 01/05/2017, for which workup including Doppler of the lower extremity was negative. SYLVIA inhibitor was stopped, blood pressure has been relatively well controlled, and he has been maintained on Lasix and potassium. He has been in his normal state of health up until yesterday, when he started having fever, chills, shortness of breath, coughing thick brown mucus, and having sensation of something sitting on his chest, especially when he coughs. He also had right earache since yesterday. He went to the doctor today, and he was asked to come to the ED to evaluate for pulmonary edema and possible pneumonia. He still has significant leg pain, 7 out of 10. The edema is currently at baseline however at times it would be so swollen that it would start oozing. He has gained 100 pounds in the last 7 months due to the progressive swelling. He reports some nausea from the steroids that was given. He has never been able to lay on his back due to his asthma. He does not use CPAP because it gives him abdominal pain. He denies sick contacts. Past surgical history vasectomy, tonsillectomy, hernia repair Allergies: Anything outside Family history: Asthma in father, mother, daughter, brother. Grandmother stroke and restless leg. Social history: Lives with his . 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 [id number] smoking history Denies alcohol, and illicit drug use. 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 Home Who Do You Live With? spouse Services at Home: None Primary Language: Divehi Smoking Status: Former Smoker (stopped smoking 7 months ago) ETOH Use: occasional use Illicit Drug Use: denies illicit drug use Functional Ability Ambulation: independent Review of Systems Review of Systems Constitutional: Reports: chills, fever. EENTM: Denies: visual changes. Cardiovascular: Reports: chest pain, orthopena, peripheral edema. Denies: palpitations. Respiratory: Reports: cough, short of breath, sputum production. GI: Reports: nausea. Denies: abdominal pain, bloating, constipation, diarrhea, vomiting. Genitourinary: Denies: dysuria. Exam & Diagnostic Data Last 24 Hrs of Vital Signs/I&O Vital Signs Date Time Temp Pulse Resp B/P B/P Pulse O2 O2 Flow FiO2 Mean Ox Delivery Rate 02/053 97.8 112 20 120/80 96 Room Air 02/05 2106 99.4 122 22 120/78 96 Room Air 02/05 2102 Room Air 02/059 96 02/05 2014 99.7 02/05 1830 98 02/05 1826 100.7 02/05 1710 99.6 119 20 127/77 97 Room Air Intake & Output 02/06 0800 02/06 0000 02/05 1600 Intake Total 100 Output Total 200 Balance -100 Intake, IV 100 Output, Urine 200 Patient 127.006 kg Weight Weight Estimated Measurement Method Physical Exam General Appearance Alert, Oriented X3, Cooperative, noticably short of breath, sitting up on the chair Skin chronic lymphedema up to hips, red up to knees Skin Temp/Moisture Exam: Warm/Dry Sepsis Skin Exam (color): Normal for Ethnicity HEENT Atraumatic, PERRLA, EOMI, dry mucous membranes , ears examined, no acute inflammation noted Neck Supple, No JVD, +2 Carotid Pulse wo Bruit, No LAD Lymphatic Axillary nl, Cervical nl Cardiovascular Normal S1, Normal S2, tachcycardic Lungs Clear to Auscultation, Normal Air Movement, mild scattered wheeze Abdomen Normal Bowel Sounds, Soft, No Tenderness Neurological Normal Speech, Strength at 5/5 X4 Ext Extremities LLE warm and tender Vascular Normal Pulses, Pulses Symmetrical Last 24 Hrs of Labs/Marquez: Laboratory Tests 02/05/17 1743: Anion Gap 11, Estimated GFR > 60, BUN/Creatinine Ratio 9.1, Glucose 90, Calcium 9.0, Iron 24 L, TIBC 348, Ferritin 52.1, Total Bilirubin 0.5, AST 25, ALT 44, Alkaline Phosphatase 107, Troponin I < 0.01, Lma-O-Fqpmtymqafd Pept 69.4, Total Protein 7.6, Albumin 4.1, Globulin 3.5, Albumin/Globulin Ratio 1.2, CBC w Diff NO MAN DIFF REQ, RBC 4.73, MCV 81.7, MCH 27.2, RDW 13.5, MPV 6.8 L, Gran % 69.9 , Lymphocytes % 11.6 L, Monocytes % 16.9 H, Eosinophils % 1.6, Basophils % 0 L, Absolute Granulocytes 7.5 H, Absolute Lymphocytes 1.2, Absolute Monocytes 1.8 H, Absolute Eosinophils 0.2, Absolute Basophils 0, PUBS MCHC 33.3 Microbiology 02/06 0026 NASOPHARYN: Influenza Virus A & B Rapid Smear - ORD 02/05 2133 URINE ROUT: Legionella Antigen - ORD 02/05 2133 URINE ROUT: Streptococcus pneumoniae Antigen (M - ORD 02/05 2133 LOWER RESP: Respiratory Culture - ORD 02/05 2133 LOWER RESP: Gram Stain - ORD 02/05 191 BLOOD: Blood Culture - RECD 02/05 1850 BLOOD: Blood Culture - RECD Diagnostic Data EKG Results SR 116 QTc 467 CXR Results EXAM TYPE: RAD - XRY-CHEST XRAY, PA AND LATERAL EXAMINATION: XR CHEST CLINICAL INFORMATION: Rule out pneumonia. Cough. COMPARISON: Chest x-ray from 01/02/2017. TECHNIQUE: 2 views of the chest were obtained. FINDINGS: There are increased interstitial lung markings which are visible on prior imaging. No airspace opacities or pleural effusions are seen. The cardiomediastinal silhouette is normal. No acute osseous abnormality is identified. IMPRESSION: Increased lung markings is nonspecific and may be chronic or could be due to mild underlying pulmonary venous congestion. Recommend clinical correlation. DICTATED BY: PAMELA MILLAN MD DATE/TIME DICTATED:02/05/171804 Assessment/Plan Assessment: 41-year-old male, with past medical history of hypertension, obstructive sleep apnea, compliant with CPAP, asthma, obesity, chronic lymphedema, was sent in by PCP for fever, cough with brown sputum, malaise. He was febrile to 100.7, tachycardic to 122. Chest x-ray shows increased lung markings, nonspecific could be due to chronic versus mild underlying pulmonary venous congestion. Despite having received Solu-Medrol, nebulizer, and azithromycin in the ED, he was still significantly short of breath, limiting his mobility, requiring him to be admitted for close monitoring. There is also concern for DVT given that he is for the most part sedentary due to the chronic lower extremity edema, of undetermined etiology. Given the tachycardia, we also consider possibility of pulmonary embolism, although EKG does not does not show changes consistent with pulmonary embolism. Problem list: # Viral bronchitis # LLE warm and tender # Viral bronchitis * Admit to general medicine * Solu-Medrol IV 40 every 12 * azithromycin 500 mg daily * TRC. Symbicort 2 puffs twice a day, Albuterol, Ipratropium * Consider consult with Dr. Schuler * f/u flu, respiratory culture, urine legionella, strep pneumo, BCX2 # LLE warm and tender * Lasix 40 mg by mouth daily * Tramadol 50 mg every 8 when necessary pain * F/U US LE to r/o DVT Diet: heart healthy PP: Dilaudid IV 0.5 mg every 4 when necessary severe pain, IV Tylenol 1000 mg every 6 when necessary moderate pain, Tylenol by mouth 650 mg every 6 when necessary mild pain DVT PPX: FULL CODE As Ranked By This Provider Problem List: 1. Bronchitis Core Measures/Miscellaneous Acute Coronary Syndrome ACS Diagnosis: No Cerebrovascular Accident CVA/TIA Diagnosis: No Congestive Heart Failure CHF Diagnosis: No Venous Thromboembolism VTE Risk Factors: Age > 40, Immobility, paresis [facility] prophylaxis d/t: No contraindications No VTE Pharm Prophylaxis d/t: No contraindications VTE Diagnosis: No VTE Type: NONE VTE Confirmed by (Test): NONE Severe Sepsis Severe Sepsis Present: No Septic Shock Septic Shock Present: No Miscellaneous Documentation Attending Case Discussed With: KAJAL PABON MD Primary Care Physician: ANGELA BARKER DO Patient sees these Specialists Dr Meyers cardiology Dr Schuler pulmonology Dr Mak vascular surgery Level of Patient Care: General Medicine RONI BAILON 02/05/171954: General Information and HPI Allergies/Medications Home Med list Acetaminophen 500 MG TABLET 2 TAB PO PRN PAIN (Reported) Albuterol Sulfate (Proair Hfa) 90 MCG HFA.AER.AD 2 PUF INH Q4-6 PRN PRN BREATHING (Reported) Budesonide/Formoterol Fumarate (Symbicort 160-4.5 Mcg Inhaler) 160 MCG-4.5 MCG/ ACTUATION HFA.AER.AD 2 PUF INH BID BREATHING (Reported) Furosemide (Lasix) 40 MG TABLET 1 TAB PO DAILY LEG SWELLING Ipratropium/Albuterol Sulfate (Combivent Respimat Inhal [place]) 20 MCG-100 MCG/ ACTUATION MIST.INHAL 1-2 PUFF INH Q4 HRS NEEDED PRN BREATHING (Reported) Potassium Chloride (K-Tab ER) 20 MEQ TABLET.ER 1 TAB PO DAILY SUPPLEMENT Tramadol HCl 50 MG TABLET 1 TAB PO PRN PAIN (Reported) Resident Review Statement Resident Statement: examined this patient, discussed with r d internship, agreed with r d internship, discussed with family, reviewed EMR data (avail), discussed with nursing , discussed with case mgmt, reviewed images, amended to note Other Findings: 41-year-old male with a past medical history of hypertension, sleep apnea noncompliant with CPAP, morbid obesity, bilateral lower extremity swelling percent of the liver for chief complaints of generalized malaise, fever, chills and productive brown cough. According to the patient he was in his usual state of health up until yesterday when he started to feel sick and cough bringing up productive brown phlegm. He endorses chills and fever saying that he's had low-grade fever of about 99F. He denies any history of sick contact, does endorse chest discomfort saying that it hurts every time he takes a deep breath. He rates his chest pain is 3 out of 10. He does endorse nausea, denies any abdominal pain, alteration in bowel movement, does endorse right ear pain however denies any sore throat. He saw his PCP this morning, who advised him to come to the hospital for furtehr evaluation. It is difficult to tweak whether he has PND, orthopnea since he lies on his side. Of note he is a former smoker with a 48 pack year smoking history quit smoking about 8 months ago. He states that he is much compliant with his medications, however, does not use CPAP at night, because he gets abdomunal pain. He does endorse lower extremity pain that he grades as an 8/10. He has a dog at home, states that he is allergic to pollen. 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 Last admission was in December 2016 for persistent minimal extremity swelling and pain and he was diuresed with Lasix. Vitals at the time of admission blood pressure 127/77, respiratory rate 20, tachycardic to 119, MAXIMUM TEMPERATURE of 100.7 saturating 97% on room air. On physical exam he is alert, oriented 3 and in no acute distress sitting comfortably in bed. HEENT revealed PERRLA, dry mucous membranes. Examination of the ears revealed clear tympanic membranes. Examination of the neck did not reveal an elevated JVP, cervical lymphadenopathy. Cardiovascular exam was benign with amylase 1, S2, no murmurs rubs or gallops appreciated. Respiratory exam revealed decreased breath sounds bilaterally. Abdominal exam was benign with abdomen soft, nontender, nondistended with normal bowel sounds heard in all 4 quadrants. Examination of the lower extremities revealed 3+ bilateral edema with chronic venous stasis changes. His left lower extremity was low but more swollen compared to the right lower extremity and was erythematous and both his legs were tender to palpation. Labs pertinent for normal white blood cell count of 10,800, H&H of 12.9/38.6 with a normal MCV of 81.7 and a platelet count of 151,000. Serum chemistries reveal a sodium of 137, potassium 4.5, bicarbonate of 24, anion gap 11, BUN 10 with a creatinine of 1.1. LFTs unremarkable with AST/active 25/44, alkaline phosphatase of 107, troponin negative at less than 0.01. Chest x-ray revealed increased lung markings which is nonspecific and may be chronic or could be due to mild underlying pulmonary venous congestion Echocardiogram done in July 2016 revealed a normal left ventricular ejection fraction of 65%, mild concentric left ventricular hypertrophy EKG revealed sinus tachycardia with a heart rate of 116, normal axis, QTC of 467 , poor R-wave progression, no ST-T changes. In the ER received azithromycin 500 mg every 1, Solu-Medrol 125 mg IV 1, Lasix 40 mg IV 1, Proventil 2. Assessment and plan Admit patient to general medicine. #Dyspnea Most likely secondary to viral versus bacterial bronchitis versus COPD exacerbation versus pneumonia versus CHF exacerbation unlikely as he is euvolemic on physical exam versus pulmonary embolism given sinus tachycardia, bilateral lower extremity swelling however this is chronic He did receive Solu-Medrol 125 mg IV 1 in the ER. Will continue on Solu-Medrol 40 mg every 12 hours Continue azithromycin 500 mg daily IV from its anti-inflammatory properties Follow-up will respiratory cultures Follow up rapid flu, urinary antigen for Legionella and strep pneumo, blood cultures 2 We will get an ultrasound Doppler of lower extremities rule out DVT. [facility] nebs #Bilateral lower extremity swelling Continue on furosemide 40 mg daily #Normocytic anemia Secondary to iron deficiency versus anemia of chronic disease Follow-up iron studies Guaiac all stools DVT prophylaxis Heparin 5000 international units 3 times a day subcutaneous Diet Heart healthy CODE STATUS Full code KAJAL PABON 02/06/17 0310: Attending MD Review Statement Attending Statement Attending MD Statement: examined this patient, discuss w/resident/PA/ACCOUNT REVIEW SPECIALIST, agreed w/resident/PA/ACCOUNT REVIEW SPECIALIST, reviewed EMR data (avail), reviewed images, amended to note Attending Assessment/Plan: CC: Fever, Shortness of breath, wheezing PMH: Asthma/COPD, SHAE, obesity, HTN, Patient came to ER for cough, brown colored sputum production, chest tightness, right-sided ear pain associated with chills and subjective fever. He was noticing worsening of shortness of breath and wheezing. He went to PCP who suggested him to come to ER. Vitals: MAXIMUM TEMPERATURE 100.7, tachycardia 119, respiration 20, blood pressure 127/77, saturating well on room air. On exam: A O 3, cooperative, mild respiratory distress, neck supple, JVD normal , no lymphadenopathy, mucosa moist, no focal neurological deficit, bilateral lower extremity edema present, no obvious skin rashes or inflammation except mild redness bilateral lower extremity, CVS: S1-S2, RRR tachycardia. RS: Clear to auscultate bilaterally. Abdomen: Soft, NT, ND, bowel sounds present. Labs: CBC, BMP, LFT, troponin, proBNP unremarkable CXR:Increased lung markings is nonspecific and may be chronic or could be due to mild underlying pulmonary venous congestion. Recommend clinical correlation. EKG: Sinus tachycardia A and P Patient comes for fever, productive cough, malaise. Upon arrival in ER patient was in significant respiratory distress with wheezing. He received albuterol ipratropium nebulization treatment, 40 mg IV Lasix, methylprednisolone 125 mg IV with symptomatic improvement. Patient was ambulated but dropped O2 saturation to 93%, and wheezing. Exacerbation of COPD/asthma. Has low-grade 100.7 fever without significant leukocytosis or any pulmonary infiltrates for pneumonia. + Bronchitis + Bilateral lower extremity edema + History of SHAE, obesity - Admit to general medicine - Continue scheduled and as required albuterol ipratropium nebulization - Continue 40 mg methylprednisolone IV every 12 hours - Continue IV azithromycin - Check for flu test - Replace electrolytes - Continue nighttime CPAP - Continue home doses of Lasix, PO - DVT prophylaxis with heparin or Lovenox - Adequate pain control
[2017-02-05] MEDS ORDERED: K-TAB ER20 MEQ PO (21:35)
[2017-02-05 22:13] VITALS: BP 120/80
--- NOTE | 2017-02-06 03:11 | Admission Certification ---
Admission Certification Certification Statement - As attending physician, I certify that at the time of - admission, based on clinical presentation, severity of - symptoms, need for further diagnostic testing and - therapeutic interventions, and risk of adverse outcomes - without in-hospital treatment, in my clinical assessment, - this patient requires an acute hospital stay for a minimum - of two nights or longer. I have also considered psychsocial - factors such as support system, advanced age, financial - issues, cognitive issues, and failed out-patient treatments, - past re-admission history, safety of patient, and lack of - compliance as applicable. Specific rationale supporting this admission is: Bronchitis
[2017-02-06 06:32] VITALS: BP 110/80
--- NOTE | 2017-02-06 07:34 | PN- Housestaff ---
TRAVIS ELDRIDGE,MATI 02/06/17 0733: Subjective Follow-up For: Bronchitis Subjective: I followed up and examined the patient today. He is walking around the room, saturating well in room air, not in distress, and does not offer any complaints. He was inquiring about the date of his discharge. His vitals have been stable, no overnight issues. He is still receiving IV steroids and IV antibiotics today. Review of Systems Constitutional: Reports: no symptoms. Objective Last 24 Hrs of Vital Signs/I&O Vital Signs Date Time Temp Pulse Resp B/P B/P Pulse O2 O2 Flow FiO2 Mean Ox Delivery Rate 02/06 1437 98.2 111 20 120/77 95 02/06 1350 Room Air Room Air 02/06 0632 97.9 111 22 110/80 96 Room Air 02/05 2213 97.8 112 20 120/80 96 Room Air 02/05 2106 99.4 122 22 120/78 96 Room Air 02/05 2102 Room Air 02/05 205 96 02/05 2014 99.7 Intake & Output 02/06 1600 02/06 0800 02/06 0000 Intake Total 700 500 100 Output Total 200 Balance 700 500 -100 Intake, IV 100 Intake, Oral 700 500 Output, Urine 200 Patient 127.006 kg Weight Weight Estimated Measurement Method Physical Exam General Appearance: Alert, Oriented X3, Cooperative, No Acute Distress Other Physical Findings: Skin chronic lymphedema up to hips, red up to knees HEENT Atraumatic, PERRLA, EOMI, dry mucous membranes, ears examined, no acute inflammation noted Neck Supple, No JVD Lymphatic Cervical nl Cardiovascular Normal S1, Normal S2 Lungs Normal Air Movement, mild scattered wheeze Abdomen Normal Bowel Sounds, Soft, No Tenderness Neurological Normal Speech, Strength at 5/5 X4 Ext Extremities no change, but mild tenderness remaining Vascular Normal Pulses, Pulses Symmetrical Current Medications: Current Medications Sig/Carey Start time Last Medication Dose Route Stop Time Status Admin Acetaminophen 650 MG Q6P PRN 02/05 2045 AC PO Acetaminophen 1,000 MG Q6P PRN 02/05 2045 AC IV Acetaminophen 0 .STK-MED ONE 02/06 2004 DC PO Acetaminophen 975 MG ONCE ONE 02/05 1845 DC 02/05 PO 02/05 Albuterol Sulfate 3 ML ONCE ONE 02/05 2100 DC 02/05 INH 02/05 Albuterol Sulfate 3 ML ONCE ONE 02/05 1830 DC 02/05 INH 02/05 183 1830 Azithromycin 500 MG DAILY 02/05 2138 AC Sodium Chloride 250 ML IV Azithromycin 500 MG ONCE ONE 02/05 1930 DC 02/05 Sodium Chloride 250 ML IV 02/05 Budesonide/ 2 PUF BID 02/05 2200 AC 02/06 Formoterol Fumarate INH 0550 Furosemide 40 MG DAILY 02/06 1000 AC PO Furosemide 0 .STK-MED ONE 02/05 2005 DC IV Furosemide 40 MG ONCE ONE 02/05 1900 DC 02/05 IV 02/05 Heparin Sodium 5,000 UNIT Q8 02/05 220 AC (Porcine) SC Hydromorphone HCl 0.5 MG Q4P PRN 02/05 204 AC IV Ipratropium Golden 2.5 ML ONCE ONE 02/05 2100 DC 02/05 INH 02/05 Ipratropium Golden 2.5 ML ONCE ONE 02/05 1830 DC 02/05 INH 02/05 1831 183 Methylprednisolone 40 MG Q12 02/06 1000 AC IV Methylprednisolone 40 MG Q8 02/05 2200 DC 02/05 IV 2225 Methylprednisolone 0 .STK-MED ONE 02/05 2006 DC .ROUTE Methylprednisolone 125 MG ONCE ONE 02/05 191 DC 02/05 IV 02/05 Tramadol HCl 50 MG Q8P PRN 02/05 2145 AC PO Tramadol HCl 0 .STK-MED ONE 02/05 2005 DC PO Tramadol HCl 50 MG ONCE ONE 02/05 1900 DC 02/05 PO 02/05 Last 24 Hrs of Lab/Marquez Results Last 24 Hrs of Labs/Mics: Laboratory Tests 02/06/17 0635: Sodium Pending, Potassium Pending, Chloride Pending, Carbon Dioxide Pending, Anion Gap Pending, BUN Pending, Creatinine Pending, BUN/Creatinine Ratio Pending , CBC w Diff Pending, WBC Pending, RBC Pending, Hgb Pending, Hct Pending, MCV Pending, MCH Pending, RDW Pending, Plt Count Pending, MPV Pending, PUBS MCHC Pending 02/05/17 1743: Anion Gap 11, Estimated GFR > 60, BUN/Creatinine Ratio 9.1, Glucose 90, Calcium 9.0, Iron 24 L, TIBC 348, Ferritin 52.1, Total Bilirubin 0.5, AST 25, ALT 44, Alkaline Phosphatase 107, Troponin I < 0.01, Qjl-T-Keyiyonyrgt Pept 69.4, Total Protein 7.6, Albumin 4.1, Globulin 3.5, Albumin/Globulin Ratio 1.2, CBC w Diff NO MAN DIFF REQ, RBC 4.73, MCV 81.7, MCH 27.2, RDW 13.5, MPV 6.8 L, Gran % 69.9 , Lymphocytes % 11.6 L, Monocytes % 16.9 H, Eosinophils % 1.6, Basophils % 0 L, Absolute Granulocytes 7.5 H, Absolute Lymphocytes 1.2, Absolute Monocytes 1.8 H, Absolute Eosinophils 0.2, Absolute Basophils 0, PUBS MCHC 33.3 Microbiology 02/06 0026 NASOPHARYN: Influenza Virus A & B Rapid Smear - COLB 02/05 2133 URINE ROUT: Legionella Antigen - COLB 02/05 2133 URINE ROUT: Streptococcus pneumoniae Antigen (M - COLB 02/05 2133 LOWER RESP: Respiratory Culture - COLB 02/05 2133 LOWER RESP: Gram Stain - COLB 02/05 1910 BLOOD: Blood Culture - RECD 02/05 1850 BLOOD: Blood Culture - RECD Assessment/Plan Assessment: 41-year-old male with past medical history of hypertension, obstructive sleep apnea with CPAP, asthma, obesity, chronic lymphedema, who presented with fever and cough is currently being treated in the general medical floor for the following issues: #Acute bronchitis Patient's symptom and clinical finding is suggestive of acute bronchitis. The admitting team has already started him on IV antibiotics and IV steroids. This morning, he was still wheezing, thus requiring IV steroids, which hopefully we can taper it down to oral steroids tomorrow. Similarly, IV antibiotics is planned to be switched to oral antibiotics tomorrow if the patient is improving. In that case, patient could safely be discharged tomorrow. -Continuing total respiratory care, Symbicort, nebulization with Atrovent. -IV methylprednisolone 40 mg every 8 hours has been changed to every 12 hours. #Continuing rest of his home medication #Diet heart healthy DVT prophylaxis: Subcutaneous heparin CODE STATUS full code Problem List: 1. Bronchitis Pain Ratin Pain Location: legs Pain Goal: Pain 4 or less Pain Plan: prn Tomorrow's Labs & Rationales: - NARGIS ELDRIDGE,SHREYAS 02/06/17 1447: Attending MD Review Statement Attending Statement Attending MD Statement: examined this patient, discuss w/resident/PA/IN STORE REPRESENTATIVE, agreed w/resident/PA/IN STORE REPRESENTATIVE, discussed with family, reviewed EMR data (avail), discussed with nursing, discussed with case mgmt, amended to note Attending Assessment/Plan: Patient seen and examined. Resting comfortably limits in any acute distress. He reports feeling remarkably better. Denies any shortness of breath at rest or with exertion. He is afebrile hemodynamically stable. He is maintaining saturation on room air. On examination lungs are clear bilaterally. He has chronic bilateral lower extremity edema with mild tenderness. There is no erythema. There is no open area. His condition is chronic and has been worked up extensively in the past. He had Dopplers of the lower extremities again during this admission and again showed no evidence of DVT. The only concern at present is his low-grade fever yesterday. We will monitor patient overnight. We'll continue with bronchodilator therapy and antibiotic therapy for his bronchitis. He remains afebrile tomorrow he may be discharged home to complete his course of azithromycin home. He will also be transitioned to oral steroid therapy tomorrow.
[2017-02-06 08:06] LABS: ABSOLUTE BASOPHIL COUNT 0 /CUMM (0.0-0.2); ABSOLUTE EOSINOPHIL COUNT 0 /CUMM (0.0-0.7); ABSOLUTE GRANULOCYTE CT 9.2 /CUMM (1.4-6.5); ABSOLUTE LYMPH COUNT 0.8 /CUMM (1.2-3.4); ABSOLUTE MONOCYTE COUNT 0.3 /CUMM (0.10-0.60); BASOPHIL % 0 % (0.0-2.0); EOSINOPHIL % 0 % (0-5); GRANULOCYTE % 88.8 % (42.2-75.2); HEMATOCRIT 39.5 % (42-52); MEAN CORPUSCULAR HGB 27.2 PG (27.0-31.0); MEAN CORPUSCULAR HGB CONC 33.3 G/DL (33.0-37.0); MEAN CORPUSCULAR VOLUME 81.7 FL (80.0-94.0); MEAN PLATELET VOLUME 7.3 FL (7.4-10.4); PLATELET COUNT 477 /CUMM (130-400); RBC DISTRIBUTION WIDTH 13.4 % (11.5-14.5); RED BLOOD CELL CT 4.83 /CUMM (4.70-6.10); WHITE BLOOD CELL COUNT 10.4 /CUMM (4.8-10.8)
--- NOTE | 2017-02-06 11:51 | ULTRASOUND REPORT ---
EXAMINATION: US TRIPLEX OF LOWER EXTREMITIES, BILATERAL CLINICAL INFORMATION: Bilateral lower extremity edema COMPARISON: None TECHNIQUE: Color-flow triplex imaging with spectral analysis and compression Doppler were performed on the lower extremities. FINDINGS: Respiratory variation, normal compression and augmented flow are noted throughout the lower extremities. The visualized common femoral vein, superficial femoral vein, profunda femoral vein, popliteal vein and midcalf peroneal and posterior tibial venous segments show no evidence of deep venous thrombosis. There is no Garcia's cyst. IMPRESSION: Normal triplex scan without evidence of deep venous thrombosis involving the lower extremities.
[2017-02-06 14:37] VITALS: BP 120/77
[2017-02-06] MEDS ORDERED: AZITHROMYCIN250 M1 PO (22:22)
[2017-02-06 22:26] VITALS: BP 128/80
--- NOTE | 2017-02-06 22:36 | Patient Discharge Instructions ---
Discharge Instructions General Discharge Information You were seen/treated for: Acute Bronchitis; Bilateral leg swelling. Special Instructions: Please follow up with your PCP Dr Stone within ten days of discharge. Please return to emergency if symptoms worsen. Diet Continue normal diet: Yes Recommended Diet: Heart Healthy Activity Full Activity/No Limits: Yes Acute Coronary Syndrome Inclusion Criteria At DC or during hospital stay patient has or had the following: ACS DIAGNOSIS No Discharge Core Measures Meds if any: Prescribed or Continued at Discharge Meds if any: NOT Prescribed or Continued at Discharge Congestive Heart Failure Inclusion Criteria At DC or during hospital stay patient has or had the following: CHF DIAGNOSIS No Discharge Core Measures Meds if any: Prescribed or Continued at Discharge Meds if any: NOT Prescribed or Continued at Discharge Cerebrovascular accident Inclusion Criteria At DC or during hospital stay patient has or had the following: CVA/TIA Diagnosis No Discharge Core Measures Meds if any: Prescribed or Continued at Discharge Meds if any: NOT Prescribed or Continued at Discharge Venous thromboembolism Inclusion Criteria VTE Diagnosis No VTE Type NONE VTE Confirmed by (Test) NONE Discharge Core Measures - Per Current guidelines, there needs to be overlap - treatment for the first 5 days of Warfarin therapy. - If discharged on Warfarin prior to 5 days of - overlap therapy, the patient will need to be - assessed for post discharge needs including - *Post discharge parental anticoagulation - *Warfarin and/or parental anticoagulation education - *Follow up date to check INR post discharge At least 5 days overlap therapy as Inpatient No Meds if any: Prescribed or Continued at Discharge Note: Overlap Therapy is Warfarin and Anticoagulant Meds if any: NOT Prescribed or Continued at Discharge
[2017-02-07 05:54] VITALS: BP 134/76
--- NOTE | 2017-02-07 07:02 | PN- Housestaff ---
TRAVIS ELDRIDGE,MATI 02/07/17 0701: Subjective Follow-up For: Bronchitis Asthma exacerbation Subjective: Patient followed up and examined by me today. He is standing, moving around the room on room air, not in distress, vitals have been stable, is inquiring whether he goes home today. Review of Systems Constitutional: Reports: no symptoms. Objective Last 24 Hrs of Vital Signs/I&O Vital Signs Date Time Temp Pulse Resp B/P B/P Pulse O2 O2 Flow FiO2 Mean Ox Delivery Rate 02/07 0554 98.6 107 20 134/76 96 Room Air 02/066 98.3 117 22 128/80 96 Room Air 02/06 2043 96 Room Air Intake & Output 02/07 1600 02/07 0800 02/07 0000 Intake Total 500 490 Output Total Balance 500 490 Intake, IV 250 Intake, Oral 500 240 Physical Exam General Appearance: Alert, Oriented X3, Cooperative, No Acute Distress Other Physical Findings: Skin chronic lymphedema up to hips, red up to knees HEENT Atraumatic, PERRLA, EOMI Neck Supple, No JVD Lymphatic Cervical nl Cardiovascular Normal S1, Normal S2 Lungs Normal Air Movement, no wheeze today, not in distress. Abdomen Normal Bowel Sounds, Soft, No Tenderness Neurological Normal Speech, Strength at 5/5 X4 Ext Extremities no change, but mild tenderness remaining Vascular Normal Pulses, Pulses Symmetrical Current Medications: Current Medications Sig/Carey Start time Last Medication Dose Route Stop Time Status Admin Acetaminophen 650 MG .STK-MED ONE 02/06 2119 DC PO 02/07 2120 Acetaminophen 650 MG Q6P PRN 02/05 2045 DCD 02/06 PO 2121 Acetaminophen 1,000 MG Q6P PRN 02/05 2045 DCD IV Albuterol Sulfate 3 ML BID 02/06 1349 DCD 02/06 INH 2020 Azithromycin 500 MG 2000 02/06 2000 DCD 02/06 Sodium Chloride 250 ML IV 2123 Budesonide/ 2 PUF BID 02/05 2200 DCD 02/07 Formoterol Fumarate INH 0838 Furosemide 40 MG DAILY 02/06 1000 DCD 02/07 PO 0900 Heparin Sodium 5,000 UNIT Q8 02/05 2200 DCD (Porcine) SC Hydromorphone HCl 0.5 MG Q4P PRN 02/05 2045 DCD IV Ipratropium [place] 2.5 ML BID 02/06 1349 DCD 02/06 INH 2020 Methylprednisolone 40 MG Q12 02/06 1000 DC 02/06 IV 2123 Patient Medication 1 ED ONE 02/07 0000 NR Teaching ED 02/07 2359 Prednisone 40 MG ONCE ONE 02/07 1000 DC 02/07 PO 02/07 1001 0900 Tramadol HCl 50 MG Q8P PRN 02/05 2145 DCD 02/06 PO 2122 Assessment/Plan Assessment: 41-year-old male with past medical history of hypertension, obstructive sleep apnea with CPAP, asthma, obesity, chronic lymphedema, who presented with fever and cough is currently being treated in the general medical floor for the following issues: #Acute bronchitis Patient's symptom and clinical finding is suggestive of acute bronchitis. Initially received IV steroids and IV antibiotics, patient is much better today is not wheezing and steroids have been tapered to oral form, and antibiotics changed to oral form as well. Since his condition has improved significantly since admission, he can be discharged today with oral antibiotics for next 3 days and short tapering course of steroids. #Continuing rest of his home medication #Diet heart healthy DVT prophylaxis: Subcutaneous heparin CODE STATUS full code Problem List: 1. Bronchitis 2. Exacerbation of asthma 3. Dependent edema 4. SHAE (obstructive sleep apnea) 5. Pulmonary nodules Pain Ratin Pain Location: - Pain Goal: Pain 4 or less Pain Plan: prn Tomorrow's Labs & Rationales: - SHREYAS BARILLAS MD 02/07/17 1000: Attending MD Review Statement Attending Statement Attending MD Statement: examined this patient, discuss w/resident/PA/IMPORT COORDINATOR, agreed w/resident/PA/IMPORT COORDINATOR, reviewed EMR data (avail), discussed with nursing, discussed with case mgmt, amended to note Attending Assessment/Plan: Patient seen and examined. Resting comfortably and not in any acute distress. Ambulating freely around the unit. Denies chest pain or shortness of breath. Denies palpitations. He is hemodynamically stable. He is afebrile. His maintaining saturation on room air. Blood cultures have been negative. On examination he has good entry bilaterally and lungs clear to auscultation. He has no jugular venous distention. Abdomen is distended soft and nontender. His baseline for him. He does have central obesity. He has bilateral lower extremity swelling with tenderness to touch. There is no erythema. This again is chronic and unchanged from baseline. Problems: 1. Acute bronchitis 2. Chronic bilateral lower extremity swelling 3. Obstructive sleep apnea not compliant with CPAP therapy. Plan: -Patient is medically stable to be discharged home today. He is to continue bronchodilator therapy at home and has been provided with prescriptions for a quick prednisone taper. -Patient has been encouraged to follow-up with his process area supervisor Dr. Schuler regarding restarting CPAP therapy. -Patient having mild sinus tachycardia. He is asymptomatic. Denies any chest pain or palpitations. He has had this on and off in the past reviewing his records. He has an appointment with his patient ombudsperson Dr. Bauer. He has been advised to follow-up. He is scheduled to undergo right heart catheterization to rule out restrictive heart disease. -Patient is also scheduled follow-up with his vascular surgeon as an outpatient for further workup and management of his chronic lower extremity service.
[2017-02-07] MEDS ORDERED: PREDNISONE10 M2 PO (08:03)
[2017-02-07] MEDS ORDERED: AZITHROMYCIN250 M1 PO (09:50)
--- NOTE | 2017-02-10 21:26 | Discharge Summary ---
Visit Information Visit Dates Admission Date: 02/05/17 Discharge Date: 02/07/17 Hospital Course Course Attending Physician: SHREYAS BARILLAS M.D Primary Care Physician: LUCERO [facility]ERNALWoman's Hospital Course: 41-year-old male with past medical history of hypertension, obstructive sleep apnea non-compliant with CPAP, asthma, obesity, chronic lymphedema, who presented with fever and cough was treated in the general medical floor for the following issues: #Acute bronchitis Patient's symptom and clinical findings were suggestive of acute bronchitis. He initially received IV steroids and IV antibiotics, improved on the symptoms, decreased wheezing and steroids and antibiotics changed to oral form. His condition improved significantly since admission, was able to take oral medication, so he was discharged with oral antibiotics for next 3 days and short tapering course of steroids. He has to follow up with his shop coordinator Dr Tia Schuler, reticle printer Dr Jae Bauer regarding possible right heart catheterization and ruling out restrictive heart disease, and vascular surgeon for his chronic lower extremity swelling. Patient is agreeable with the plan. #Rest of his home medication were continued. #Diet provided was heart healthy. #DVT prophylaxis with Subcutaneous heparin. #CODE STATUS was full code. Allergies: Coded Allergies: mold (Mild, NASAL CONGESTION 08/01/16) Disposition Summary Disposition Principal Diagnosis: Acute Bronchitis. Additional Diagnosis: Chronic bilateral leg swelling; SHAE not compliant on CPAP; HTN; asthma; morbidly obese. Discharge Disposition: home or self care Discharge Instructions General Discharge Information Code Status: Full Code Patient's Diet: Heart healthy Patient's Activity: As tolerated Follow-Up Instructions/Appts: Please follow up with your PCP Dr Barker within ten days of discharge. Please return to emergency if symptoms worsen. Medications at Discharge Discharge Medications: Continue taking these medications: Ipratropium/Albuterol Sulfate (Combivent Respimat Inhal [place]) 20 MCG-100 MCG/ ACTUATION MIST.INHAL 1-2 PUFF Inhale through mouth EVERY 4 HOURS NEEDED as needed for BREATHING Qty = 4 Comments: NOT GIVEN Budesonide/Formoterol Fumarate (Symbicort 160-4.5 Mcg Inhaler) 160 MCG-4.5 MCG/ ACTUATION HFA.AER.AD 2 Puff Inhale through mouth TWICE DAILY Qty = 10 Comments: Last Taken: 02/07/17 Time: 8:38 AM Albuterol Sulfate (Proair Hfa) 90 MCG HFA.AER.AD 2 Puff Inhale through mouth EVERY 4-6 HOURS NEEDED as needed for BREATHING Qty = 9 Comments: NOT GIVEN Furosemide (Lasix) 40 MG TABLET 1 Tablet ORAL DAILY Qty = 30 Comments: Last Taken: 02/07/17 Time: 9 AM Tramadol HCl (Tramadol HCl) 50 MG TABLET 1 Tablet ORAL as needed for PAIN Qty = 18 Comments: Last Taken:02/06/17 Time:9:22 PM Acetaminophen (Acetaminophen) 500 MG TABLET 2 Tablet ORAL as needed for PAIN Potassium Chloride (K-Tab ER) 20 MEQ TABLET.ER 1 Tablet ORAL DAILY Qty = 30 Comments: NOT GIVEN IN HOSPITAL This prescription has been renewed Start taking the following new medications: Azithromycin (Azithromycin) 250 MG TABLET 1 Dose Pack ORAL As Directed Qty = 3 No Refills Prednisone (Prednisone) 10 MG TABLET 1 Tablet ORAL SEE INSTRUCTIONS Qty = 6 No Refills Instructions: TAKE 3 TABS ON 02/08/17, THEN TAKE 2 TABS ON 02/09/17, THEN TAKE 1 TAB ON 02/10/17, THEN STOP. Comments: Last Taken:02/07/17 40 MG BY MOUTH GIVEN Time:9 AM Copies To: ALICE BARKER DO, MD,Trip SORIA; NIGHAT ELDRIDGE PhD,JAE Sinha Attending MD Review Statement Documenting Attending: SHREYAS BARILLAS M.D Other Findings: I have reviewed the discharge summary.
== END 2017-02-07 10:26 | DRG 144 ==
LOC: ERH 16:29 → 2NA 19:18 → ERHI 19:18 → ENTRNSPT 21:24 → 2NA 21:49 → CMPTRNSPT 21:59 → 2NA 02-06 23:21 → ENPENDDIS 02-07 08:49 → 2NA 02-07 10:26
PROVIDERS: Emergency Medicine; Internal Medicine Infectious Disease; ADMIT Internal Medicine
DX: J20.8 Acute bronchitis due to other specified organisms (principal); E66.01 Morbid (severe) obesity due to excess calories; J45.901 Unspecified asthma with (acute) exacerbation; Z68.42 Body mass index [BMI] 45.0-49.9, adult; I10 Essential (primary) hypertension; G47.33 Obstructive sleep apnea (adult) (pediatric); I89.0 Lymphedema, not elsewhere classified; D64.9 Anemia, unspecified; R91.8 Other nonspecific abnormal finding of lung field; Z87.891 Personal history of nicotine dependence
CPT/HCPCS: 2NASP; 82436; 87040; 87070; 87449; 87450; 87804; 87804-59; 93005; 93010; 93970; 96374; J0456; J1644; J1940; J2920; J2930; J3490; J7040